=== PATIENT | female | born 1995 | race Caucasian/White ===

== ENCOUNTER 2020-06-07 14:00 | Outpatient (RCR) | payer OTHER, SELFPAY | END 2020-06-15 09:47 | disposition other institution (70) | LOC: HO.PT 14:00 | DX: M54.2 Cervicalgia (principal); R51.9 Headache, unspecified; M54.9 Dorsalgia, unspecified; M25.511 Pain in right shoulder; M25.512 Pain in left shoulder | CPT/HCPCS: 97110; 97161 ==

== ENCOUNTER 2020-06-14 10:20 | Emergency (ER) | payer OTHER, SELFPAY ==
[2020-06-14 10:51] VITALS: BP 118/72; PULSE 84; RESP 18; TEMP 36.8; O2SAT 99; BMI 19.0
[2020-06-14] MEDS: 0.9 % Sodium Chloride 1,000 ML 999 ML IV (11:19)
[2020-06-14 11:26] LABS: Glucose Urine UA NEG (NEG); Leukocyte Esterase Urine NEG (NEG); Nitrite Urine NEG (NEG); Urine Blood NEG (NEG); Urine Ketones NEG (NEG); Urine Protein NEG (NEG-TRACE)
[2020-06-14 11:27] LABS: Appearance Urine HAZY; Color Urine YELLOW
[2020-06-14 11:28] LABS: Basophils Percent Auto 0.3 % (0-2); Eosinophils Absolute Auto 0.2 X10*3/uL (0.0-0.4); Eosinophils Percent Auto 1.8 % (0-4); Hematocrit 43.1 % (37-47); Imm Gran Abs Auto 0.06 X10*3/uL (0.00-0.03); Imm Gran Pct Auto 0.4 % (0.0-0.4); Lymphocytes Absolute Auto 3.1 X10*3/uL (1.2-4.9); Lymphocytes Percent Auto 22.7 % (20-40); MANUAL DIFF FLAG NO; Mean Corpuscular HGB Conc 32.5 g/dl (31.0-35.0); Mean Corpuscular Hemoglobin 28.6 pg (27.0-33.0); Mean Corpuscular Volume 88.1 fL (80-98); Mean Platelet Volume 9.8 fL (9.4-12.3); Monocytes Absolute Auto 0.7 X10*3/uL (0.1-1.2); Monocytes Percent Auto 5.4 % (2-11); Neutrophils Absolute Auto 9.5 X10*3/uL (2.0-8.3); Neutrophils Percent Auto 69.4 % (45-73); Platelet Count 288 X10*3/uL (160-400); Red Blood Count 4.89 X10*6/uL (4.20-5.50); Red Cell Distribution Width 14.5 % (11.0-16.0); White Blood Count 13.7 X10*3/uL (4.8-10.8)
[2020-06-14 11:31] LABS: Prothrombin Time 11.4 SEC (10.8-13.0)
[2020-06-14 11:33] LABS: Partial Thromboplastin Time 34.7 SEC (24.1-38.0)
[2020-06-14 11:58] LABS: Alanine Aminotransferase 12 U/L (0-31); Albumin Level 4.4 g/dL (3.5-5.0); Alkaline Phosphatase 76 U/L (39-117); Anion Gap 12 (12-20); Aspartate Amino Transferase 14 U/L (5-31); Bilirubin Direct < 0.2 mg/dL (0.0-0.5); Bilirubin Total 0.2 mg/dL (0.0-1.0); Blood Urea Nitrogen 13 mg/dL (9-16); Calcium 9.1 mg/dL (8.4-10.2); Carbon Dioxide 26 mmol/L (22-29); Chloride 103 mmol/L (96-108); Creatinine Clr Calc Pharmacy 86.1; Estimated Glomerular Filt Rate > 60; Glucose Random 83 mg/dL (60-115); Potassium 3.6 mmol/l (3.3-5.1); Sodium 137 mmol/L (135-145); Total Protein 7.5 g/dL (6.5-8.0)
[2020-06-14 12:05] LABS: HCG Quantitative 11828 mIU/mL
--- NOTE | 2020-06-14 12:19 | US_ITS ---
EXAMINATION: US OBSTETRICAL ULTRASOUND CLINICAL INFORMATION: Early , vaginal bleeding COMPARISON: None. LMP: 05/03/2020. Gestational age by maternal dates is 6 weeks 0 days. Estimated date of delivery by maternal dates is 02/07/2021. TECHNIQUE: Ultrasound of the maternal pelvis is performed using transabdominal and transvaginal transducers. Transvaginal imaging is performed due to inadequate visualization transabdominally. M-mode Doppler is also performed. FINDINGS: There is a single intrauterine gestational sac in the upper uterine cavity with visible embryo. Yolk sac not visible. No visible subchorionic hemorrhage or hematoma. HR: 93 beats per minute. CRL (crown rump length): 0.44 cm (6 weeks 1 day +/- 4 days). SHANTA (estimated date of delivery): 02/06/2021 +/- 4 days. MATERNAL ADNEXA: The right maternal ovary measures 3.0 x 2.1 x 2.7 cm. There is small right intraovarian corpus luteum measuring 1.6 cm diameter. The left maternal ovary measures 2.9 x 1.9 x 2.4 cm. There is no significant maternal adnexal mass. No maternal pelvic ascites. US/US OB <= 14 weeks fetus IMPRESSION: 1. Single intrauterine gestation with ultrasound gestational age of 6 weeks 1 day +/- 4 days. 2. Estimated date of delivery is 02/06/2021 +/- 4 days. 3. Yolk sac not visualized. 4. cardiac activity 93 bpm. This may be reassessed again at follow-up ultrasound. 5. No subchorionic hemorrhage or hematoma. 6. Incidental small right corpus luteum cyst under 2 cm. No maternal pelvic ascites.
--- NOTE | 2020-06-14 12:26 | PC.NURSE ---
pt reports that her cramping is starting to increase, aware
--- NOTE | 2020-06-14 12:32 | ED_ITS ---
HPI - General Adult General Chief complaint: Vaginal Bleeding Stated complaint: vaginal bleeding, cramping - Time Seen by Provider: 06/14/20 10:58 Source: patient Mode of arrival: ambulatory Limitations: no limitations History of Present Illness HPI narrative: Patient presents to ED for vaginal bleeding since this morning. Patient states lower abdominal cramping for the past 3 days. Patient did a home in May 26 which was positive but never followed up with OBGYN officially. Related Data Allergies Allergy/AdvReac Type Severity Reaction Status Date / Time morphine [MORPHINE] AdvReac Unknown SHAKING,TAC Unverified 02/23/20 16:35 HYCARDIA Review of Systems Review of Systems: Yes all other systems are reviewed and are negative Constitutional: Constitutional: Reports as per HPI and Reports no additional constitutional complaints Eyes: Eyes: Reports as per HPI and Reports no additional eye complaints ENT: Reports system reviewed and no additional complaints, except as documented and Reports as per HPI Cardiovascular: Cardiovascular: Reports as per HPI and Reports no additional cardiovascular complaints Respiratory: Respiratory: Reports as per HPI and Reports no additional respiratory complaints Gastrointestinal: Gastrointestinal: Reports as per HPI, Reports no additional gastrointestinal complaints and Reports abdominal pain Genitourinary: Genitourinary: Reports no additional female genitourinary complaints, Reports as per HPI and Reports abnormal vaginal bleeding Musculoskeletal: Musculoskeletal: Reports no additional musculoskeletal complaints and Reports as per HPI Neurologic: Reports system reviewed and no additional complaints, except as documented and Reports as per HPI Psychiatric: Psychiatric: Reports no additional psychiatric complaints and Reports as per HPI PMFSH Past Medical History Medical History (Updated 06/14/20 @ 14:47 by NICCI Enriquez) delivery delivered Social History Social History Smoking Status: Current every day smoker Use of substances other than those prescribed or required for medical reasons: Yes Substance Use Type: Marijuana Substance Use Frequency: Occasionally Advance Directives: No Advance Directives Information Provided: Yes Physical Exam Vital Signs: Vital Signs: Last Vital Signs Temp 98.3 F 06/14/20 10:51 Pulse 89 06/14/20 12:36 Resp 18 06/14/20 12:36 BP 107/57 L 06/14/20 12:36 Pulse Ox 99 06/14/20 12:36 Body Mass Index 19.0 Const: General: cooperative, healthy appearing, comfortable, no acute distress, well developed, alert and awake Orientation/consciousness: patient oriented x3 HENMT: Head: Yes normal to inspection and Yes No palpable skull fracture present Eyes: General: appearance normal, both eyes and all related structures Neck: Neck: Yes normal visual inspection, Yes full ROM, Yes no lymphadenopathy, Yes no meningeal signs, Yes trachea midline, Yes supple and No tender Chest: Chest palpation & inspection: normal inspection of the chest and normal palpation of entire chest wall Resp: Effort & Inspection: normal respiratory effort and able to speak in complete sentences Auscultation: clear to auscultation bilaterally Cardio: Jugular venous distension: no JVD Heart sounds: S1 normal heart sound present and S2 normal heart sound present GI: Inspection: Yes normal to inspection Palpation (GI): Soft to palpation, not firm, Tenderness to palpation present (GI) (Lower pelvic pain), no guarding and not rigid : Other: Waiting for female certified procedural coder to perform pelvic exam General: No CVA tenderness and Yes no CVA tenderness Back/Spine/Pelvis: Back: no CVA tenderness, No CVA tenderness and No back tenderness Skin: General skin exam: no rashes or lesions noted Neuro: General: patient oriented x3, gait normal and no meningeal signs Cranial nerves: Yes CN's II-XII intact bilaterally Extrem: General: Yes normal to inspection and Yes full ROM Psych: Appearance: grossly normal, well kempt and not disheveled Course Course Course Narrative: Patient will have blood work to confirm and be given IV fluids and Tylenol for pain. IF patient is positive shie will be sent for ultrasound to rule out ectopic . We will do pelvic exam Reevaluation(s) Reevaluation #1: Patient patient labs came back normal at baseline. Patient blood type O positive, Rh positive. Patient went to ultrasound and plan was to wait for female certified procedural coder to perform pelvic exam. Nurse informed me after ultrasound was done patient asked for her IV to be pulled out and she walked out the ER. Transvaginal ultrasound does not show ectopic . It shows IUP of about 6 weeks. Time: 14:43 Medical Decision Making MDM Narrative Medical decision making narrative: Threatened Lab Data Result diagrams: 06/14/20 11:15 06/14/20 11:15 Labs: Lab Results 06/14/20 06/14/20 06/14/20 Range/Units 11:10 11:15 11:15 WBC 13.7 H (4.8-10.8) X10*3/uL RBC 4.89 (4.20-5.50) X10*6/uL Hgb 14.0 (12.0-16.0) g/dl Hct 43.1 (37-47) % MCV 88.1 (80-98) fL MCH 28.6 (27.0-33.0) pg MCHC 32.5 (31.0-35.0) g/dl RDW 14.5 (11.0-16.0) % Plt Count 288 (160-400) X10*3/uL MPV 9.8 (9.4-12.3) fL Immature Gran % (Auto) 0.4 (0.0-0.4) % Neut % (Auto) 69.4 (45-73) % Lymph % (Auto) 22.7 (20-40) % [place] % (Auto) 5.4 (2-11) % Eos % (Auto) 1.8 (0-4) % Baso % (Auto) 0.3 (0-2) % Lymph # (Auto) 3.1 (1.2-4.9) X10*3/uL [place] # (Auto) 0.7 (0.1-1.2) X10*3/uL Eos # (Auto) 0.2 (0.0-0.4) X10*3/uL Baso # (Auto) 0.0 (0.0-0.2) X10*3/uL Abs Immat Gran (auto) 0.06 H (0.00-0.03) X10*3/uL Absolute Neuts (auto) 9.5 H (2.0-8.3) X10*3/uL Absolute Nucleated RBC 0.000 (0.0-0.012) X10*3/uL Nucleated RBC % (auto) 0.0 (0.0-0.2) /100WBC PT 11.4 (10.8-13.0) SEC INR 1.0 (0.9-1.1) APTT 34.7 (24.1-38.0) SEC Sodium (135-145) mmol/L Potassium (3.3-5.1) mmol/l Chloride (96-108) mmol/L Carbon Dioxide (22-29) mmol/L Anion Gap (12-20) BUN (9-16) mg/dL Creatinine (0.5-1.4) mg/dL Estim Creat Clear Calc Estimated GFR Random Glucose (60-115) mg/dL Calcium (8.4-10.2) mg/dL Total Bilirubin (0.0-1.0) mg/dL Direct Bilirubin (0.0-0.5) mg/dL AST (5-31) U/L ALT (0-31) U/L Alkaline Phosphatase (39-117) U/L Total Protein (6.5-8.0) g/dL Albumin (3.5-5.0) g/dL Beta HCG, Quant mIU/mL Urine Color Urine Appearance Urine pH (5.0-8.0) Ur Specific [place] (1.005-1.025) Urine Protein (NEG-TRACE) MG/DL Urine Glucose (UA) (NEG) MG/DL Urine Ketones (NEG) MG/DL Urine Blood (NEG) Urine Nitrite (NEG) Ur Leukocyte Esterase (NEG) Blood Type O Positive 06/14/20 06/14/20 Range/Units 11:15 11:15 WBC (4.8-10.8) X10*3/uL RBC (4.20-5.50) X10*6/uL Hgb (12.0-16.0) g/dl Hct (37-47) % MCV (80-98) fL MCH (27.0-33.0) pg MCHC (31.0-35.0) g/dl RDW (11.0-16.0) % Plt Count (160-400) X10*3/uL MPV (9.4-12.3) fL Immature Gran % (Auto) (0.0-0.4) % Neut % (Auto) (45-73) % Lymph % (Auto) (20-40) % [place] % (Auto) (2-11) % Eos % (Auto) (0-4) % Baso % (Auto) (0-2) % Lymph # (Auto) (1.2-4.9) X10*3/uL [place] # (Auto) (0.1-1.2) X10*3/uL Eos # (Auto) (0.0-0.4) X10*3/uL Baso # (Auto) (0.0-0.2) X10*3/uL Abs Immat Gran (auto) (0.00-0.03) X10*3/uL Absolute Neuts (auto) (2.0-8.3) X10*3/uL Absolute Nucleated RBC (0.0-0.012) X10*3/uL Nucleated RBC % (auto) (0.0-0.2) /100WBC PT (10.8-13.0) SEC INR (0.9-1.1) APTT (24.1-38.0) SEC Sodium 137 (135-145) mmol/L Potassium 3.6 (3.3-5.1) mmol/l Chloride 103 (96-108) mmol/L Carbon Dioxide 26 (22-29) mmol/L Anion Gap 12 (12-20) BUN 13 (9-16) mg/dL Creatinine 0.66 (0.5-1.4) mg/dL Estim Creat Clear Calc 86.1 Estimated GFR > 60 Random Glucose 83 (60-115) mg/dL Calcium 9.1 (8.4-10.2) mg/dL Total Bilirubin 0.2 (0.0-1.0) mg/dL Direct Bilirubin < 0.2 (0.0-0.5) mg/dL AST 14 (5-31) U/L ALT 12 (0-31) U/L Alkaline Phosphatase 76 (39-117) U/L Total Protein 7.5 (6.5-8.0) g/dL Albumin 4.4 (3.5-5.0) g/dL Beta HCG, Quant 41591 mIU/mL Urine Color YELLOW Urine Appearance HAZY Urine pH 7.0 (5.0-8.0) Ur Specific [place] 1.020 (1.005-1.025) Urine Protein NEG (NEG-TRACE) MG/DL Urine Glucose (UA) NEG (NEG) MG/DL Urine Ketones NEG (NEG) MG/DL Urine Blood NEG (NEG) Urine Nitrite NEG (NEG) Ur Leukocyte Esterase NEG (NEG) Blood Type Discharge Plan Discharge Clinical Impression: Threatened Patient Disposition: [facility] Discharge Date/Time: 06/14/20 14:15
[2020-06-14] MEDS: Acetaminophen 325 MG TABLET 650 MG PO (12:34)
[2020-06-14 12:36] VITALS: BP 107/57; PULSE 89; RESP 18; O2SAT 99
--- NOTE | 2020-06-14 12:52 | PC.NURSE ---
pt of to us
--- NOTE | 2020-06-14 13:38 | PC.NURSE ---
Addendum entered by Bettye Tenorio 06/14/20 14:33: pt requested to take her iv out because it was hurting her Original Note: PT REPORTS FEELING BETTER AFTER THE TYLENOL PAIN AT 09/15
--- NOTE | 2020-06-14 14:15 | PC.NURSE ---
pt waked out of the ed, reports she does not want to keep waiting
== END 2020-06-14 14:15 | disposition left against medical advice (07) ==
PROVIDERS: Physician Assistant; Emergency Provider Emergency Medicine
DX: O20.0 Threatened abortion (principal); O99.331 Smoking (tobacco) complicating pregnancy, first trimester; Z3A.01 Less than 8 weeks gestation of pregnancy
CPT/HCPCS: 36415; 76801; 76817; 80053; 80076; 81003; 82248; 84702; 85025; 85610; 85730; 86900; 86901; 96360; 99284

== ENCOUNTER 2020-09-24 15:21 | Emergency (ER) | payer OTHER, SELFPAY ==
[2020-09-24 15:36] VITALS: BP 129/74; PULSE 93; RESP 18; TEMP 36.6; O2SAT 98; BMI 21.6
== END 2020-09-24 18:17 | disposition left against medical advice (07) ==
PROVIDERS: Emergency Provider Emergency Medicine
DX: N93.9 Abnormal uterine and vaginal bleeding, unspecified (principal); Z48.00 Encounter for change or removal of nonsurgical wound dressing
CPT/HCPCS: 99282

== ENCOUNTER 2020-09-25 | Emergency (ER) | payer OTHER, SELFPAY ==
--- NOTE | 2020-09-25 00:54 | ED.FEMALEGU ---
HPI - Female Genitourinary General Chief complaint: OB Stated complaint: ?Miscarriage /Vaginal Bleeding/ 4-5weeks Time Seen by Provider: 09/25/20 00:41 Source: patient Mode of arrival: ambulatory Limitations: no limitations History of Present Illness HPI Narrative: Patient 4 with 4 miscarriages and 1 twin delivery LMP was 08/21/20 Checked test at home 3 times positive and today she noticed spotting and later on dark color blood with lower abdominal cramps. Also patient has a small red area on the scar which is tender and erythematous Related Data Previous Rx's Medication Instructions Recorded clindamycin HCl 300 mg PO QID #40 cap 09/25/20 Allergies Allergy/AdvReac Type Severity Reaction Status Date / Time morphine [MORPHINE] AdvReac Unknown SHAKING,TAC Unverified 02/23/20 16:35 HYCARDIA Review of Systems Review of Systems: Constitutional : No Weight loss, No Fever, No Chills ENT/Mouth : No sore throat, No Rhinorrhea Eyes: No Eye Pain, No Swelling Cardiovascular : No Chest Pain, no palpitations Respiratory : No Cough, No Sputum, no shortness of breath Gastrointestinal : no Nausea, No Vomiting, No Diarrhea, No abdominal Pain, no black stools Genitourinary : No Dysuria, No Urinary Frequency Musculoskeletal : No joint pain, No Myalgias, No Joint Swelling Skin : Small red tender area at location Neuro : No Weakness, No Numbness, No Dizziness, No Headache Psych : No Anxiety/Panic, No Depression Heme/Lymph: No Bruising, No Lymphadenopathy Endocrine : No Polyuria, No Polydipsia All other systems reviewed and are negative [facility] Past Medical History Medical History delivery delivered Social History Social History Smoking Status: Current every day smoker Substance Use Type: Marijuana Advance Directives: No Physical Exam Vital Signs: Vital Signs: Last Vital Signs Temp 97.8 F 09/25/20 00:59 Pulse 89 09/25/20 00:59 Resp 16 09/25/20 00:59 BP 139/85 09/25/20 00:59 Pulse Ox 99 09/25/20 00:59 Body Mass Index 20.2 Appearance: Alert. Oriented X3. No acute distress. Eyes: Pupils equal, round and reactive to light. ENT: Pharynx normal. Neck: Normal inspection. Neck supple. CVS: Normal heart rate and rhythm. Pulses normal. Respiratory: No respiratory distress. Breath sounds normal. Abdomen: Soft and nontender. Bowel sounds are present, no mass palpable, no CVA tenderness Skin: Skin warm and dry. Small tender swelling at scar Normal skin turgor. Extremities: No lower extremity edema. Neuro: Oriented X 3. No motor deficit. No sensory deficit. Skin: Full body images: 1. Erythematous swollen fluctuant 2 x 2 cm area at area Procedures Abscess I/D Site: abdomen Side (if applicable): left Local Anesthetic: lidocaine 2% Amount of anesthesia used (mL): 4 Technique: incised with blade Amount of fluid expressed (mL): 3 Sent for culture/gram staining?: Yes Irrigation: No Packing used?: none MDM - Female Genitourinary MDM Narrative Medical decision making narrative: Patient likely with miscarriage had blood clots and dark blood today HCG only 44. Will advise patient to follow-up with lead slot technician. Patient had the abscess at which was drained , likely the cause for elevated WBC count will discharge home on clindamycin Lab Data Attestation: I reviewed the patient's lab results. Result diagrams: 09/25/20 01:19 09/25/20 01:19 Labs: Lab Results 09/25/20 09/25/20 09/25/20 Range/Units 01:19 01:19 01:19 WBC 19.1 H (4.8-10.8) X10*3/uL RBC 4.97 (4.20-5.50) X10*6/uL Hgb 14.4 (12.0-16.0) g/dl Hct 43.5 (37-47) % MCV 87.5 (80-98) fL MCH 29.0 (27.0-33.0) pg MCHC 33.1 (31.0-35.0) g/dl RDW 14.1 (11.0-16.0) % Plt Count 288 (160-400) X10*3/uL MPV 10.1 (9.4-12.3) fL Immature Gran % (Auto) 0.4 (0.0-0.4) % Neut % (Auto) 72.0 (45-73) % Lymph % (Auto) 20.5 (20-40) % [place] % (Auto) 6.1 (2-11) % Eos % (Auto) 0.7 (0-4) % Baso % (Auto) 0.3 (0-2) % Lymph # (Auto) 3.9 (1.2-4.9) X10*3/uL [place] # (Auto) 1.2 (0.1-1.2) X10*3/uL Eos # (Auto) 0.1 (0.0-0.4) X10*3/uL Baso # (Auto) 0.1 (0.0-0.2) X10*3/uL Abs Immat Gran (auto) 0.07 H (0.00-0.03) X10*3/uL Absolute Neuts (auto) 13.7 H (2.0-8.3) X10*3/uL Absolute Nucleated RBC 0.000 (0.0-0.012) X10*3/uL Nucleated RBC % (auto) 0.0 (0.0-0.2) /100WBC PT 12.0 (10.8-13.0) SEC INR 1.0 (0.9-1.1) APTT 36.4 (24.1-38.0) SEC Sodium (135-145) mmol/L Potassium (3.3-5.1) mmol/L Chloride (96-108) mmol/L Carbon Dioxide (22-29) mmol/L Anion Gap (12-20) BUN (9-16) mg/dL Creatinine (0.5-1.4) mg/dL Estim Creat Clear Calc Estimated GFR Random Glucose (60-115) mg/dL Calcium (8.4-10.2) mg/dL Total Bilirubin (0.0-1.0) mg/dL Direct Bilirubin (0.0-0.5) mg/dL AST (5-31) U/L ALT (0-31) U/L Alkaline Phosphatase (39-117) U/L Total Protein (6.5-8.0) g/dL Albumin (3.5-5.0) g/dL Beta HCG, Quant mIU/mL Urine Color Urine Appearance Urine pH (5.0-8.0) Ur Specific [place] (1.005-1.025) Urine Protein (NEG-TRACE) MG/DL Urine Glucose (UA) (NEG) MG/DL Urine Ketones (NEG) MG/DL Urine Blood (NEG) Urine Nitrite (NEG) Ur Leukocyte Esterase (NEG) Urine RBC (0) /HPF Urine WBC (0-4) /HPF Ur Squamous Epith Cells /LPF Urine Bacteria /LPF Urine Mucus /LPF Blood Type O Positive 09/25/20 09/25/20 Range/Units 01:19 01:34 WBC (4.8-10.8) X10*3/uL RBC (4.20-5.50) X10*6/uL Hgb (12.0-16.0) g/dl Hct (37-47) % MCV (80-98) fL MCH (27.0-33.0) pg MCHC (31.0-35.0) g/dl RDW (11.0-16.0) % Plt Count (160-400) X10*3/uL MPV (9.4-12.3) fL Immature Gran % (Auto) (0.0-0.4) % Neut % (Auto) (45-73) % Lymph % (Auto) (20-40) % [place] % (Auto) (2-11) % Eos % (Auto) (0-4) % Baso % (Auto) (0-2) % Lymph # (Auto) (1.2-4.9) X10*3/uL [place] # (Auto) (0.1-1.2) X10*3/uL Eos # (Auto) (0.0-0.4) X10*3/uL Baso # (Auto) (0.0-0.2) X10*3/uL Abs Immat Gran (auto) (0.00-0.03) X10*3/uL Absolute Neuts (auto) (2.0-8.3) X10*3/uL Absolute Nucleated RBC (0.0-0.012) X10*3/uL Nucleated RBC % (auto) (0.0-0.2) /100WBC PT (10.8-13.0) SEC INR (0.9-1.1) APTT (24.1-38.0) SEC Sodium 139 (135-145) mmol/L Potassium 3.8 (3.3-5.1) mmol/L Chloride 104 (96-108) mmol/L Carbon Dioxide 22 (22-29) mmol/L Anion Gap 17 (12-20) BUN 14 (9-16) mg/dL Creatinine 0.64 (0.5-1.4) mg/dL Estim Creat Clear Calc 90.0 Estimated GFR > 60 Random Glucose 86 (60-115) mg/dL Calcium 8.9 (8.4-10.2) mg/dL Total Bilirubin 0.7 (0.0-1.0) mg/dL Direct Bilirubin 0.2 (0.0-0.5) mg/dL AST 18 (5-31) U/L ALT 10 (0-31) U/L Alkaline Phosphatase 87 (39-117) U/L Total Protein 7.9 (6.5-8.0) g/dL Albumin 4.3 (3.5-5.0) g/dL Beta HCG, Quant 44 mIU/mL Urine Color DARK YELLOW Urine Appearance CLEAR Urine pH 6.5 (5.0-8.0) Ur Specific [place] >= 1.030 H (1.005-1.025) Urine Protein TRACE (NEG-TRACE) MG/DL Urine Glucose (UA) NEG (NEG) MG/DL Urine Ketones 5 (NEG) MG/DL Urine Blood 3+ H (NEG) Urine Nitrite NEG (NEG) Ur Leukocyte Esterase NEG (NEG) Urine RBC 5-9 H (0) /HPF Urine WBC 0 (0-4) /HPF Ur Squamous Epith Cells TRACE /LPF Urine Bacteria NONE /LPF Urine Mucus 3+ /LPF Blood Type Discharge Plan Discharge Clinical Impression: Threatened miscarriage, Abscess Patient Disposition: Home, Self-Care Instructions: Threatened Miscarriage (ED), Abscess Incision and Drainage (DC) Additional Instructions: Take antibiotic as advised for abscess. Follow up with PCP Follow-up with lead slot technician in 2 days for repeat blood to check about the Prescriptions: New clindamycin HCl 300 mg capsule 300 mg PO QID Qty: 40 RF: 0 Referrals: Blaise Meredith MD [Physician] - 2 days Interventions: ED Discharge Assessment Last Done: 09/25/20 02:34 Discharge Date/Time: 09/25/20 02:35
[2020-09-25 00:59] VITALS: BP 139/85; PULSE 89; RESP 16; TEMP 36.6; O2SAT 99; BMI 20.2
[2020-09-25 01:29] LABS: MANUAL DIFF FLAG NO
[2020-09-25 01:33] LABS: Basophils Absolute Auto 0.1 X10*3/uL (0.0-0.2); Basophils Percent Auto 0.3 % (0-2); Eosinophils Absolute Auto 0.1 X10*3/uL (0.0-0.4); Eosinophils Percent Auto 0.7 % (0-4); Hematocrit 43.5 % (37-47); Hemoglobin 14.4 g/dl (12.0-16.0); Imm Gran Abs Auto 0.07 X10*3/uL (0.00-0.03); Imm Gran Pct Auto 0.4 % (0.0-0.4); Lymphocytes Absolute Auto 3.9 X10*3/uL (1.2-4.9); Lymphocytes Percent Auto 20.5 % (20-40); Mean Corpuscular HGB Conc 33.1 g/dl (31.0-35.0); Mean Corpuscular Volume 87.5 fL (80-98); Mean Platelet Volume 10.1 fL (9.4-12.3); Monocytes Absolute Auto 1.2 X10*3/uL (0.1-1.2); Monocytes Percent Auto 6.1 % (2-11); Neutrophils Absolute Auto 13.7 X10*3/uL (2.0-8.3); Platelet Count 288 X10*3/uL (160-400); Red Blood Count 4.97 X10*6/uL (4.20-5.50); Red Cell Distribution Width 14.1 % (11.0-16.0); White Blood Count 19.1 X10*3/uL (4.8-10.8)
[2020-09-25 01:43] LABS: Partial Thromboplastin Time 36.4 SEC (24.1-38.0)
[2020-09-25 01:55] LABS: Alanine Aminotransferase 10 U/L (0-31); Albumin Level 4.3 g/dL (3.5-5.0); Alkaline Phosphatase 87 U/L (39-117); Aspartate Amino Transferase 18 U/L (5-31); Bilirubin Direct 0.2 mg/dL (0.0-0.5); Bilirubin Total 0.7 mg/dL (0.0-1.0); Total Protein 7.9 g/dL (6.5-8.0)
[2020-09-25 01:58] LABS: HCG Quantitative 44 mIU/mL
[2020-09-25] MEDS: Lidocaine HCl 2 % MPF 5 ML VIAL INFILTRATI (01:59)
[2020-09-25 02:05] LABS: Glucose Urine UA NEG (NEG); Leukocyte Esterase Urine NEG (NEG); Nitrite Urine NEG (NEG); PH 6.5 (5.0-8.0); Specific Gravity - Urine >= 1.030 (1.005-1.025); Urine Blood 3+ (NEG); Urine Ketones 5 MG/DL (NEG); Urine Protein TRACE MG/DL (NEG-TRACE)
[2020-09-25 02:12] LABS: Appearance Urine CLEAR; Color Urine DARK YELLOW
[2020-09-25 02:37] LABS: Anion Gap 17 (12-20); Blood Urea Nitrogen 14 mg/dL (9-16); Calcium 8.9 mg/dL (8.4-10.2); Carbon Dioxide 22 mmol/L (22-29); Chloride 104 mmol/L (96-108); Estimated Glomerular Filt Rate > 60; Glucose Random 86 mg/dL (60-115); Potassium 3.8 mmol/L (3.3-5.1); Sodium 139 mmol/L (135-145)
[2020-09-25 02:38] LABS: Mucus Urine 3+ /LPF; Squamous Epithelial Cell Urine TRACE /LPF; WBC Urine 0 /HPF (0-4)
== END 2020-09-25 02:35 | disposition home or self-care (01) ==
PROVIDERS: Emergency Medicine; Emergency Provider Internal Medicine
DX: O20.0 Threatened abortion (principal); O99.331 Smoking (tobacco) complicating pregnancy, first trimester; O99.321 Drug use complicating pregnancy, first trimester; F12.90 Cannabis use, unspecified, uncomplicated; O26.891 Other specified pregnancy related conditions, first trimester; L02.211 Cutaneous abscess of abdominal wall; Z3A.01 Less than 8 weeks gestation of pregnancy
CPT/HCPCS: 10060; 36415; 80048; 80076; 81001; 81003; 84702; 85025; 85610; 85730; 86900; 86901; 87071; 87205; 99283; 99284

== ENCOUNTER 2020-10-18 13:47 | Outpatient (REF) | payer OTHER, SELFPAY ==
[2020-10-18 14:08] LABS: COVID-19 Test Negative (Negative)
== END 2020-10-18 13:48 | disposition home or self-care (01) ==
LOC: HO.LAB 13:47
PROVIDERS: Visit Provider Internal Medicine
DX: Z20.822 Contact with and (suspected) exposure to COVID-19 (principal)
CPT/HCPCS: 36415; 87635; C9803

== ENCOUNTER 2022-07-12 21:18 | Emergency (ER) | payer OTHER, SELFPAY ==
[2022-07-12 21:23] VITALS: PULSE 100; RESP 16; TEMP 36.6; O2SAT 98; BMI 24.2
--- NOTE | 2022-07-12 22:25 | ED_ITS ---
HPI - Skin/Abscess/Foreign Bdy General Chief complaint: Skin/Abscess/Foreign Body Stated complaint: cyst under right breast Time Seen by Provider: 07/12/22 22:25 Source: patient Mode of arrival: ambulatory Limitations: no limitations History of Present Illness HPI narrative: 27-year-old female presents with abscess under her right breast, has been there for about a month but over the past 2 days the redness swelling and pain has increased. She has been trying to express the pus on her own with poor effect. She is not , and has no family history of breast cancer. MD complaint: abscess/boil Onset (ago): month(s) (1) Tetanus up to date: yes Severity: moderate Severity scale (1-10): 5 Quality: aching Pain Consistency: constant Relieving factors: none Exacerbating factors: palpation and movement Context: none Associated symptoms: denies other symptoms Treatments prior to arrival: attempted to drain pus at home Related Data Previous Rx's Medication Instructions Recorded clindamycin HCl 300 mg capsule 300 mg PO QID #40 caps 09/25/20 doxycycline monohydrate 100 mg 100 mg PO BID 10 days #20 caps 07/12/22 capsule Allergies Allergy/AdvReac Type Severity Reaction Status Date / Time morphine [MORPHINE] AdvReac Unknown SHAKING,TAC Unverified 02/23/20 16:35 HYCARDIA Review of Systems Review of Systems: Constitutional: No Fever, No Chills Cardiovascular: No Chest Pain, No SOB Respiratory: No Cough, No Dyspnea Skin: Positive abscess under the right breast Yes all other systems are reviewed and are negative PMFSH Past Medical History Attestation statement: The following information was validated with the patient. Source: old records reviewed Medical History delivery delivered Social History Social History Substance Use Type: Marijuana Advance Directives: No Physical Exam Vital Signs: Vital Signs: Last Vital Signs Temp 98 F 07/12/22 21:23 Pulse 100 07/12/22 21:23 Resp 16 07/12/22 21:23 Pulse Ox 98 07/12/22 21:23 O2 Del Method 07/12/22 21:23 BMI result Body Mass Index 24.2 Appearance: Alert. Oriented X3. No acute distress. Eyes: Pupils equal, round and reactive to light. ENT: Pharynx normal. Neck: Normal inspection. Neck supple. CVS: Normal heart rate and rhythm. Pulses normal. Respiratory: No respiratory distress. Breath sounds normal. Skin: 1 cm in diameter abscess under the right breast, with 2 cm in diameter of cellulitis. No axillary lymphadenopathy noted. Extremities: No lower extremity edema. Full range of motion to all extremities. Neuro: No motor deficit. No sensory deficit. Cranial nerves 2-12 intact. Course Course Course Narrative: 27-year-old female presents with cyst under the right breast, has been present for about a month, over the past 2 days redness swelling and tenderness has i ncreased. 1 cm area of fluctuance and induration with a 2 cm diameter of cellulitis. Patient does not have a history of breast cancer, does not have any axillary lymphadenopathy. Patient does understand that she must follow-up with the breast Clinic for mammogram. At this time will I and D this abscess, obtain culture, and give doxycycline. 23:13 prepped and draped in sterile fashion. Patient tolerated procedure well. Culture obtained approximately 5 mL of purulent fluid expressed from the site. Sterile dressing applied. Patient does understand signs symptoms indicating need for emergent intervention. Agrees to plan of care discharge home. Medications Administered Discontinued Medications Generic Name Dose Route Start Last Admin Trade Name Freq PRN Reason Stop Dose Admin Doxycycline Monohydrate 100 mg 07/12/22 22:33 07/12/22 22:59 Doxycycline Monohydrate 100 Mg Capsule PO 07/12/22 22:34 100 mg ONCE ONE Administration Ibuprofen 600 mg 07/12/22 23:15 07/12/22 23:34 Ibuprofen 600 Mg Tablet PO 07/12/22 23:16 Not Given ONCE ONE Lidocaine HCl 4 ml 07/12/22 22:32 07/12/22 23:09 Lidocaine Hcl 2% 2 Ml Vial SUBCUT 07/12/22 22:33 4 ml ONCE ONE Administration Medical Decision Making Differential Diagnosis Differential Diagnoses: The differential diagnosis associated with the presentation includes Abscess, cellulitis, breast cancer, mastitis External Record Review External record reviewed: Outpatient record Prescription Management I considered prescription management with: Antibiotic Procedures Abscess I/D Site: other (Right breast) Local Anesthetic: lidocaine 1% Amount of anesthesia used (mL): 4 Technique: incised with blade Amount of fluid expressed (mL): 5 Sent for culture/gram staining?: Yes Irrigation: No Packing used?: none Discharge Plan Discharge Clinical Impression: Abscess of skin or subcutaneous tissue, Cellulitis Patient Disposition: Home, Self-Care Instructions: Cellulitis (ED), Abscess (ED), Abscess Follow-up (ED), Warm Compress or Soak (ED) Additional Instructions: You were evaluated for right breast abscess. Your cultures are pending. Take doxycycline 100 mg twice a day for the next 10 days. If you notice any fevers, chills, or increased redness or swelling at the site please return immediately. You must follow-up with the breast Clinic at [facility] for mammogram. Alternate Tylenol 650 mg every 6 hours and Motrin 600 mg every 6 hours as needed for pain and fever management. Consider taking these medications 3 hours apart so you have pain and fever management every 3 hours. Write down what time you take these medications to prevent accidental overdose. Last dose of Motrin given at 23:30. Consider giving Tylenol at 03:00 so you can have pain management every 3 hours. Thank you for choosing this emergency department for evaluation. Please follow-up with primary care physician as needed. Return to the emergency department for any new, concerning, or worsening symptoms. Prescriptions: New doxycycline monohydrate 100 mg capsule 100 mg PO BID 10 Days Qty: 20 0RF No Action clindamycin HCl 300 mg capsule 300 mg PO QID Qty: 40 0RF Referrals: [facility] [place] [facility] [Provider Group] - 3 days (Right breast abscess, you need a mammogram) Stand Alone Forms: Work/School Release Interventions: ED Discharge Assessment Last Done: 07/12/22 23:34 Discharge Date/Time: 07/12/22 23:35
[2022-07-12] MEDS: Doxycycline Monohydrate 100 MG CAPSULE PO (22:59)
--- OUTSIDE RECORDS SUMMARY | 2022-07-12 23:05 | XMS_ITS | Continuity of Care Document ---
:1995 Author Organization [facility] Address [address] [place] [address]- Care Team Providers Name Role Phone Katharina Corona MD Primary Care Physician Encounter [facility] [place] Date(s): 04/15/22 - 05/15/[address] [address] Allergies, Adverse Reactions, Alerts Substance Reaction Severity Status morphine sob Active Medications Colace sodium 100 mg oral capsule 100 mg, 1, capsule, By Mouth, 2 times a day, PRN, # 60 capsule, Refills 2, Tot. Refills 2, Maintenance, for constipation, 05/11/22 14:24:00 EST, Route to Pharmacy Electronically, [facility], Partial fill upon patient request if the prescr... Start Date: 05/11/22 Status: Orderedibuprofen 600 mg oral tablet 600 mg, 1, tablet, By Mouth, 3 times a day, # 90 tablet, Refills 0, Tot. Refills 0, Maintenance, 05/15/22 9:44:00 EST, Route to Pharmacy Electronically, [facility], Partial fill upon patient request if the prescription is for a schedule I... Start Date: 05/15/22 Status: OrderedMiraLax oral powder for reconstitution = 17 Gm, By Mouth, Daily, dissolve in water before taking, # 527 Gm, 0 Refills, Maintenance, 05/11/22 14:24:00 EST, REC Powder, [facility], Partial fill upon patient request if the prescription is for a schedule II opioid drug., 17 Gm By... Start Date: 05/11/22 Status: Orderedondansetron 4 mg oral tablet, disintegrating 1 tablet = 4 mg, By Mouth, Every 6 hours, PRN Nausea & Vomiting, # 12 tablet, 1 Refills, Maintenance, 05/14/22 13:50:00 EST, Tablet, [facility], Partial fill upon patient request if the prescription is for a schedule II opioid drug., 57,... Start Date: 05/14/22 Status: OrderedPrenatal Multivitamin Tablet 1 tablet, By Mouth, Daily, 0 Refills, Maintenance, 12/07/18 18:36:22 EDT, Tablet Start Date: 12/07/18 Status: OrderedPrenatal Multivitamins with Folic Acid 1 mg oral tablet 1 tablet, By Mouth, Daily, # 90 tablet, 3 Refills, Maintenance, 04/15/22 16:45:00 EST, Tablet, [facility], Partial fill upon patient request if the prescription is for a schedule II opioid drug., 1 tablet By Mouth Daily, 57, kg, 04/14/22... Start Date: 04/15/22 Status: OrderedReglan 10 mg oral tablet 1 tablet = 10 mg, By Mouth, 4 times a day, # 120 tablet, 0 Refills, Maintenance, 05/11/22 14:24:00 EST, Tablet, [facility], Partial fill upon patient request if the prescription is fora schedule II opioid drug., 57, kg, 04/14/22 15:10:00... Start Date: 05/11/22 Status: Orderedsenna - oral tablet 2 tablet, By Mouth, Daily at bedtime, PRN for constipation, # 60 tablet, 2 Refills, Maintenance, 05/11/22 14:24:00 EST, Tablet, [facility], Partial fill upon patient request if the prescription is for a schedule II opioid drug., 57, kg, 1... Start Date: 05/11/22 Status: OrderedTylenol 8 Hour 650 mg oral tablet, extended release 2 tablet = 1,300 mg, By Mouth, Every 8 hours, PRN as needed for pain, # 24 tablet, 0 Refills, Maintenance, 05/15/22 9:45:00 EST, ER Tablet, [facility], Partial fill upon patient request if the prescription is for a schedule II opioid drug... Start Date: 05/15/22 Status: OrderedUnisom 25 mg oral tablet 1 tablet = 25 mg, By Mouth, Daily, 15 to 30 minutes before bed, # 30 tablet, 1 Refills, Acute 04/15/23 16:46:00 EST, 04/15/22 16:45:00 EST, Tablet, [facility], Partial fill upon patient request if the prescription is for a schedule II opi... Start Date: 04/15/22 Stop Date: 04/15/23 Status: OrderedVitamin B6 25 mg oral tablet 1 tablet = 25 mg, By Mouth, 3 times a day, # 100 tablet, 1 Refills, Acute 04/15/23 16:46:00 EST, 04/15/22 16:45:00 EST, [facility], Partial fill upon patient request if the prescription is for a schedule II opioid drug., 57, kg, 04/14/22... Start Date: 04/15/22 Stop Date: 04/15/23 Status: Ordered Problem List Condition Confirmation Course Effective Dates Status Health Stat us Informant Asthma Confirmed Active Marijuana use Confirmed Active Migraines Confirmed Active premature Confirmed Active rupture of membranes Tobacco use Confirmed Active Twin dichorionic Confirmed Active diamniotic placenta Social History Social History Type Response Sex Female Patient Care team information Care Team PersonnelName: Katharina Corona MD Position: [facility] Physician (General Medicine) Member Role: PCP Address: Address: [address] [place] [address] [place] [address]- Care Team Related PersonsName: DANYEL BORJA Address: home [address] [place] [address]
--- OUTSIDE RECORDS SUMMARY | 2022-07-12 23:05 | XMS_ITS | Continuity of Care Document ---
:1995 Author Organization [facility] Address [address] [place] [address]- Care Team Providers Name Role Phone Katharina Corona MD Primary Care Physician [place] [facility] [place] 05/15/22 - 06/19/[address] [address]- Attending Physician: Not on Staff, Attending MD Allergies, Adverse Reactions, Alerts Substance Reaction Severity [...] Care Team PersonnelName: Katharina Corona MD Position: [facility] Physician (General Medicine) Member Role: PCP Address: Address: [address] [place] [address]- [place] Care Team Related PersonsName: DANYEL BORJA Address: home [address] [place] [address]
--- OUTSIDE RECORDS SUMMARY | 2022-07-12 23:05 | XMS_ITS | Continuity of Care Document ---
:1995 Author Organization [facility] Address [address] [place] [address]- Care Team Providers Name Role Phone Katharina Corona MD Primary Care Physician Encounter [facility] [place] Date(s): 04/14/22 - 05/14/[address] [address]- Allergies, Adverse Reactions, Alerts Substance Reaction Severity [...] if the prescr... Start Date: 05/11/22 Status: OrderedMiraLax oral powder for reconstitution = [...] 57, kg, 1... Start Date: 05/11/22 Status: OrderedUnisom 25 mg oral tablet 1 [...] Care Team PersonnelName: Katharina Corona MD Position: [facility] Physician (General Medicine) Member Role: PCP Address: Address: [address] [place] [address]- Care Team Related PersonsName: DANYEL BORJA Address: home [address] [facility] [address]
--- OUTSIDE RECORDS SUMMARY | 2022-07-12 23:05 | XMS_ITS | Continuity of Care Document ---
:1995 Author Organization [facility] Address [address] [place] [address]- Care Team Providers Name Role Phone Katharina Corona MD Primary Care Physician Encounter [facility] [place] Date(s): 05/13/22 - 06/27/[address] [address]- Attending Physician: Not on Staff, Attending MD [...] Care Team PersonnelName: Katharina Corona MD Position: [facility] Physician (General Medicine) Member Role: PCP Address: Address: [address] [place] [address]- [place] Care Team Related PersonsName: DANYEL BORJA Address: home [address] [place] [address]
--- OUTSIDE RECORDS SUMMARY | 2022-07-12 23:05 | XMS_ITS | Continuity of Care Document ---
:1995 Author Organization [facility] Address [address] [place] [address]- Care Team Providers Name Role Phone Katharina Corona MD Primary Care Physician Encounter [facility] [place] Date(s): 04/14/22 - 05/14/[address] [address]- Allergies, Adverse Reactions, Alerts Substance Reaction Severity [...] Care Team PersonnelName: Katharina Corona MD Position: [facility] Physician (General Medicine) Member Role: PCP Address: Address: [address] [place] [address]- Care Team Related PersonsName: DANYEL BORJA Address: home [address] [facility] [place] [address]
--- OUTSIDE RECORDS SUMMARY | 2022-07-12 23:05 | XMS_ITS | Continuity of Care Document ---
:1995 Author Organization [facility] Address [address] [place] [address]- Care Team Providers Name Role Phone Katharina Corona MD Primary Care Physician En[place] [facility] [place] Date(s): 04/16/22 - 05/16/[address] [address]- Allergies, Adverse Reactions, Alerts Substance Reaction Severity [...] Care Team PersonnelName: Katharina Corona MD Position: [facility] Physician (General Medicine) Member Role: PCP Address: Address: [address] [place] [address]- Care Team Related PersonsName: DANYEL BORJA Address: [place] [address] [facility] [place] [place] [address]
--- OUTSIDE RECORDS SUMMARY | 2022-07-12 23:05 | XMS_ITS | Continuity of Care Document ---
:1995 Author Organization [facility] Address [address] [place] [address]- Care Team Providers Name Role Phone Katharina Corona MD Primary Care Physician [place] [facility] [place](s): 05/11/22 - 06/10/[address] [address]- Allergies, Adverse Reactions, Alerts Substance Reaction Severity [...] Care Team PersonnelName: Katharina Corona MD Position: [facility] Physician (General Medicine) Member Role: PCP Address: Address: [address] [place] [address] [place] [address]- Care Team Related PersonsName: DANYEL BORJA Address: home [address] [place] [address]
--- OUTSIDE RECORDS SUMMARY | 2022-07-12 23:05 | XMS_ITS | Continuity of Care Document ---
:1995 Author Organization [facility] Address [address] [place] [address]- Care Team Providers Name Role Phone Katharina Corona MD Primary Care Physician Encounter [facility] [place] Date(s): 05/16/22 - 05/16/[address] [address] Discharge Disposition: A-D/C Home Attending Physician: Lesli Salter MD Admitting Physician: Lesli Salter MD Referring Physician: Lesli Salter MD Allergies, Adverse Reactions, Alerts Substance Reaction [...] opioid drug., 57,... Start Date: 05/14/22 Status: OrderedOxyCODONE IR Tablet 5 mg, Tablet, By Mouth, Every 4 hours, in PACU ONLY, if patient can tolerate PO, PRN for Pain , Mild, Routine, 05/16/22 12:32:00 EST Start Date: 05/16/22 Stop Date: 05/16/22 Status: DiscontinuedPrenatal Multivitamin Tablet 1 tablet, By Mouth, Daily, [...] Active Twin dichorionic Confirmed Active diamniotic placenta Vital Signs Most recent to oldest 1 2 3 [Reference Range]: Weight 54.5 kg (05/16/22 11:41 AM) Oxygen Saturation [94-100 %] 97 % 96 % 100 % (05/16/22 1:00 PM) (05/16/22 12:45 PM) (05/16/22 12 :30 PM) Pulse Rate [55-90 bpm] 76 bpm (05/16/22 11:41 AM) Blood Pressure [90-138/55-84 110/74 mm Hg 109/72 mm Hg 95/ 65 mm Hg mm Hg] (05/16/22 1:00 PM) (05/16/22 12:45 PM) (05/16/22 12 :30 PM) Respiratory Rate [16-30 18 br/min 18 br/min 20 br/mi n br/min] (05/16/22 1:05 PM) (05/16/22 1:00 PM) (05/16/22 12: 45 PM) Temperature [96.8-100.4 97.2 DegF 97.1 DegF 98.0 Deg F DegF] (05/16/22 1:00 PM) (05/16/22 12:15 PM) (05/16/22 11 :41 AM) Mode of Delivery (Oxygen) Room air Room air Room a ir (05/16/22 1:00 PM) (05/16/22 12:45 PM) (05/16/22 12 :30 PM) Blood pressure sites Arm, right (05/16/22 11:41 AM) Temperature Route Temporal Temporal Temporal (05/16/22 1:00 PM) (05/16/22 12:15 PM) (05/16/22 11 :41 AM) Dry Weight 54.5 kg (05/16/22 11:41 AM) Weight Obtained Via Standing scale (05/16/22 11:41 AM) Dry Weight Obtained Via Standing scale (05/16/22 11:41 AM) Social History Social History Type Response Sex Female Note Senait Infante RN: PERFORM Event Display: Discharge/Transfer Note Hospital Authored Date: Nursing Discharge Note Entered On: 05/16/2022 13:40 EST Performed On: 05/16/2022 13:40 EST by Senait Infante RN Nursing Discharge Note 2 Discharge Time : 05/16/2022 13:33 EST Discharge Level of Care at Discharge : Home/[facility] Patient Left Unit Via : Wheelchair Patient Accompanied Off Unit with : Significant other DC Instructions Provided & Signed by Pt : Yes Patient Understands D/C Instructions : Yes Patient Instructions Discharge Signed : Yes Did Pt have Specialty Bed or Wound Vac : No Senait Infante RN - 05/16/2022 13:40 Fiona Geronimo RN: PERFORM Event Display: Patient Education/Instruction Authored Date: [id number] Inpatient Adult Discharge Instructions [address] [id number] Name: MEGAN ALAMO : 1995 Visit: 05/16/2022 10:29:00 Current Date: 05/16/2022 12:37 Account: [id number] Inpatient Adult Discharge Instructions We would like to thank you for allowing us to assist you with your healthcare needs. The following includes patient education materials and information regarding your injury/illness. Our entire staff strives to provide an excellent experience for our patients and their families. PLEASE ENSURE YOU FOLLOW-UP PER THE INSTRUCTIONS BELOW! ?? YOUR OPINION IS IMPORTANT TO US! Please complete the survey you may receive by mail or email. Your feedback will be used to make improvements to the healthcare experiences of our patients and their families. Surveys are administered by [employer]. ?? If further treatment with your primary care physician or another doctor is recommended, it is important for you to keep the appointment. Call your primary care physician or return to the Emergency Department immediately if your condition worsens, fails to improve, or new symptoms develop. If you need to find a doctor, you can call [facility] for a referral at [phone] or toll free at [phone]) or log in to [email or web address] ?? You can view and manage your care through the patient portal or by using a health care khushboo of your choosing. [employer] is a website that allows you to securely view your medical information including your hospital discharge summary, office visit summaries, medications and follow-up visits. You can also request appointments, renew medications, and request access to your medical information using a health care khushboo of your choosing, or just ask a question. You can enroll at [email or web address] or register during your next office visit. You have been discharged from [facility], Patient Care Unit: [facility]. If you have any questions regarding these instructions after you leave, please call us and we will be happy to assist you. [facility] Your Care Team Attending Physician Joie STONE, Lesli Willis Discharging Providers Stevo Spencer DO Reason for Admission SPECIAL PROCEDURE CS DS Tests Performed Below is a partial list of the tests performed during your hospitalization. You may have had other tests and procedures not included in this list. Please discuss all test results with your provider. Primary Care Provider Katharina Corona MD Advance Directive Health Care Proxy on File No No qualifying data available. Discharge Vitals Temperature: 97.1 DegF Weight: 54.5 kg Pulse Rate: 76 bpm ?? Respiratory Rate: 19 br/min ?? Systolic Blood Pressure: 95 mm Hg ?? Diastolic Blood Pressure: 65 mm Hg ?? Oxygen Saturation: 100 % ?? Studies Pending All tests and labs ordered during this hospital stay have been completed unless listed below. Pleasediscuss all pending results with your provider listed above in these instructions. ?? No incomplete studies found What to do next Instructions From Your Doctor Discharge Orders Scheduled Follow-Up Appointments Thursday 8:00 AM EST ?? Where: [facility] [address] [place] [address]- Thursday 9:20 AM EST ?? Where: [facility] [address] [place] [address]- You Need to Schedule the Following Appointments Follow Up with??Lesli Salter When?? Follow Up with??Katharina Corona When??In 0 days Where: [address] [place] [address]- Business (1) Discharge Medications ALAMOMEGAN DELGADO :1995 Visit Date:05/16/2022 Medications: Please continue your medications until treatment is completed or stopped by your provider. Medications not listed below should be discontinued. Discuss any questions related to medications with your provider. What How Much When Why Instructions Next Dose Unchanged Acetaminophen (Tylenol 8 Hour 650 mg oral tablet, extended release) 2 tab(s) Oral Every 8 hours as needed for as needed for pain Unchanged Docusate (Colace sodium 100 mg oral capsule) 1 capsule Oral Twice a day as needed for for constipation Unchanged Doxylamine (Unisom 25 mg oral tablet) 1 tab(s) Oral Daily 15 to 30 minutes before bed ?? Unchanged Ibuprofen (ibuprofen 600 mg oral tablet) 1 tab(s) Oral 3 times a day Unchanged Metoclopramide (Reglan 10 mg oral tablet) 1 tab(s) Oral 4 times a day Unchanged Multivitamin, ( Multivitamin Tablet) 1 tab(s) Oral Daily Unchanged Multivitamin, ( Multivitamins with Folic Acid 1 mg oral tablet) 1 tab(s) Oral Daily Unchanged Ondansetron (ondansetron 4 mg oral tablet, disintegrating) 1 tab(s) Oral Every 6 hours as needed for Nausea & Vomiting Unchanged Polyethylene Glycol 3350 (MiraLax oral powder for reconstitution) 17 gram Oral Daily dissolve in water before taking ?? Unchanged Pyridoxine (Vitamin B6 25 mg oral tablet) 1 tab(s) Oral 3 times a day Unchanged Senna (senna - oral tablet) 2 tab(s) Oral Daily at Bedtime as needed for for constipation Test Results Below is a partial list of the most recent Laboratory test results done prior to this discharge. You may have had other tests and procedures not included in this list. Please discuss all test results with your provider. Allergies (NKA means No Known Allergies) morphine??(sob) Problems Active Problems??(7) Asthma?? Marijuana use?? Migraines? premature rupture of membranes?? Tobacco use?? Twin dichorionic diamniotic placenta?? Education Materials Below is the list of Educational Leaflet Providered with your Discharge Instructions. Surgery Medical Daystay Surgical Overnight Discharge Instructions?? Valuables and Belongings I fully understand and agree that [facility] accepts no responsibility for all my personal property including clothing, toilet articles, radios, jewelry, dentures, hearing aids, rings, money, or any other property that is in my possession or is brought to me after admission. I understand certain valuables may be placed in a hospital safe for a short period of time. I understand that the hospital is not liable for loss or damage due to accident, fire, or other natural occurrence while said property is in the safe. I accept full responsibility for any personal property that I keep with me, and will not hold the hospital responsible in case of loss or disappearance. I acknowledge that i have been encouraged to send valuables and belongings home. ?? Review of Valuable and Belonging List: With patient Date for Pt to Sign Valuables/Belongings: 05/16/22 11:41:00 ?? Valuables & Belongings ?? Clothes Electronic devices Jewelry Monetary Items Personal devices Miscellaneous Medications (Valuables) Valuables at Bedside Jacket, Pants, Shirt, Shoes, Undergarments Cell phone Earrings, Rings ? Valuables Sent Home ? Valuables Sent to Security ? Other Discharge Information ? Pulmonary Rehab Status?? Pulmonary Rehab Discharge Status?? Respiratory Rate: 19 br/min ? Common Emergency Awareness Tips IS IT A STROKE? Act FAST and Check for these signs: FACE Does the face look uneven? ARM Does one arm drift down? SPEECH Does their speech sound strange? TIME Call at any sign of stroke ?? Heart Attack Signs Chest discomfort: Most heart attacks involve discomfort in the center of the chest and lasts more than a few minutes, or goes away and comes back. It can feel like uncomfortable pressure, squeezing, fullness or pain. Discomfort in upper body: Symptoms can include pain or discomfort in one or both arms, back, neck, jaw or stomach. Shortness of breath: With or without discomfort. Other signs: Breaking out in a cold sweat, nausea, or lightheaded. Remember, MINUTES DO MATTER. If you experience any of these heart attack warning signs, call to get immediate medical attention! ?? Smoking can increase your chances of developing chronic health problems and can cause harmful effects to other family members in your house. If you smoke, you are strongly encouraged to quit. Please call [facility] Link at [phone] or 4-429-223TrendBent ([phone]) or log in to [email or web address] for referrals to smoking cessation programs. ?? The National Suicide Prevention Hotline is available 29/12 if you or someone you know needs to find areason to keep living. By calling 0-734-392-Bloglovin (2303) you'll be connected to a skilled, trained counselor at a crisis center in your area. INPATIENT DISCHARGE INSTRUCTIONS SIGNATURE PAGE MEGAN ALAMO Location:[facility] Registration Date and Time:05/16/2022 10:29 EST Primary Care Physician: Katharina Corona MD, I MEGAN ALAMO, have received the above patient education materials/instructions and have verbalized understanding. If ambulance or transport services are being used I further acknowledge being given a choice of service. ?? If you need to contact me, please call me at this number: . Patient/Woods Warden Name: Patient/Woods Warden Signature: Relationship to Patient: Witness Name/Signature: Date: Fiona Jaimes RN: PERFORM, SIGN, VERIFY Event Display: Patient Education Handout Authored Date: Fiona Jaimes RN: PERFORM Event Display: Patient Education Leaflets Authored Date: [id number] Surgery Medical Daystay Surgical Overnight Discharge Instructions ?? 295 Medical Daystay/Surgical Overnight Discharge Instructions ? Since your coordination and judgment may be altered by medication and/or anesthesia, a responsible adult must drive you home from the hospital. ? If you have received medication for pain or sedation while under our care, you should not drive, operate machinery, drink alcohol, or sign any legal documents for 24 hours.?? You should have someone with you at home tonight. ? Remain at home the day of discharge.?? You may be up and about unless otherwise instructed by your physician. ? You may resume your daily prescription medication schedule.?? Any depressant medication should be avoided for 24 hours unless otherwise instructed by your surgeon or anesthesiologist. ? Call your physician for a follow-up appointment.? If you experience unusual or severe pain not relied by your pain medication, excessive bleedingor drainage, persistent nausea and vomiting, excessive swelling or redness, foul odor from incision site or fever over 100.6F, you need to call your physician. ? A follow-up phone call by a nurse will be made the day after your procedure.?? If you have stayed with us over night, you will not be receiving a follow-up phone call. ? Nausea and vomiting are a common side effect of prescription pain medication.?? We recommend that pills are not taken on an empty stomach.?? While taking any prescription pain medication you should not drive or drink alcohol. ? Patient Care team information Care Team PersonnelName: Katharina Corona MD Position: [facility] Physician (General Medicine) Member Role: PCP Address: Address: [address] [place] [address] [place] [address]- Care Team Related PersonsName: DANYEL BORJA Address: home [address] [place] [address]
--- OUTSIDE RECORDS SUMMARY | 2022-07-12 23:05 | XMS_ITS | Continuity of Care Document ---
:1995 Author Organization [facility] Address [address] [place] [address]- Care Team Providers Name Role Phone Not on Staff, PCP Primary Care Physician Unavailable Encounter [facility] [place] Date(s): 01/06/20 - 01/07/[address] [address]- [facility] Discharge Disposition: A-D/C Walkout Attending Physician: Not on Staff, Attending MD Admitting Physician: Not on Staff, Admitting MD Referring Physician: Not on Staff, Referring MD Allergies, Adverse Reactions, Alerts Substance Reaction Severity Status morphine sob Active Medications Multivitamin Tablet 1 tablet, By Mouth, Daily, 0 Refills, Maintenance, 12/07/18 18:36:22 EDT, Tablet Start Date: 12/07/18 Status: Ordered Problem List Condition Effective Dates Status Health Status Informant Asthma(Confirmed) Active Marijuana use(Confirmed) Active Migraines(Confirmed) Active premature rupture of Active membranes(Confirmed) Tobacco use(Confirmed) Active Twin dichorionic diamniotic Active placenta(Confirmed) Vital Signs Most recent to oldest [Reference Range]: 1 Oxygen Saturation [94-100 %] 100 % (01/06/20 11:44 PM) Pulse Rate [55-90 bpm] 112 bpm *H* (01/06/20 11:44 PM) Blood Pressure [90-138/55-84 mm Hg] 112/79 mm Hg (01/06/20 11:44 PM) Respiratory Rate [16-30 br/min] 18 br/min (01/06/20 11:44 PM) Temperature [96.8-100.4 DegF] 98.1 DegF (01/06/20 11:44 PM) Blood pressure sites Arm, right (01/06/20 11:44 PM) Temperature Route Oral (01/06/20 11:44 PM) Social History Social History Type Response Sex Female
--- OUTSIDE RECORDS SUMMARY | 2022-07-12 23:05 | XMS_ITS | Continuity of Care Document ---
:1995 Author Organization [facility] Address [address] [place] [address]- Care Team Providers Name Role Phone Katharina Corona MD Primary Care Physician [place] [facility] [place] - 06/12/[address] [address] Allergies, Adverse Reactions, Alerts Substance [...] Care Team PersonnelName: Katharina Corona MD Position: [facility] Physician (General Medicine) Member Role: PCP Address: Address: [address] [place] [address] [place] [address]- Care Team Related PersonsName: DANYEL BORJA Address: home [address] [place] [address]
--- OUTSIDE RECORDS SUMMARY | 2022-07-12 23:05 | XMS_ITS | Continuity of Care Document ---
:1995 Author Organization [facility] Address [address] [place] [address]- Care Team Providers Name Role Phone Katharina Corona MD Primary Care Physician Encounter [facility] [place] Date(s): 04/22/22 - 05/22/[address] [address]- Allergies, Adverse Reactions, Alerts Substance Reaction Severity [...] (General Medicine) Member Role: PCP Address: Address: [address] [place] [address] [place] [address]- Care Team Related PersonsName: DANYEL BORJA Address: home [address] [place] [address]
--- OUTSIDE RECORDS SUMMARY | 2022-07-12 23:05 | XMS_ITS | Continuity of Care Document ---
:1995 Author Organization [facility] Address [address] [place] [address]- Care Team Providers Name Role Phone Not on Staff, PCP Primary Care Physician Unavailable Encounter [facility] [place] Date(s): 04/14/22 - 04/14/[address] [address] Discharge Disposition: A-D/C Home Attending Physician: Vasile Camarena MD Admitting Physician: Vasile Camarena MD Referring Physician: Vasile Camarena MD Allergies, Adverse Reactions, Alerts Substance Reaction Severity Status morphine sob Active Medications Multivitamin Tablet 1 tablet, By Mouth, Daily, 0 Refills, Maintenance, 12/07/18 18:36:22 EDT, Tablet Start Date: 12/07/18 Status: Ordered Problem List Condition Confirmation Course Effective Dates Status Health Stat us Informant Asthma Confirmed Active Marijuana use Confirmed Active Migraines Confirmed Active premature Confirmed Active rupture of membranes Tobacco use Confirmed Active Twin dichorionic Confirmed Active diamniotic placenta Vital Signs Most recent to oldest [Reference Range]: 1 Weight 57 kg (04/14/22 3:10 PM) Oxygen Saturation [94-100 %] 100 % (04/14/22 3:10 PM) Pulse Rate [55-90 bpm] 89 bpm (04/14/22 3:10 PM) Blood Pressure [90-138/55-84 mm Hg] 129/80 mm Hg (04/14/22 3:10 PM) Respiratory Rate [16-30 br/min] 18 br/min (04/14/22 3:10 PM) Temperature [96.8-100.4 DegF] 98.2 DegF (04/14/22 3:10 PM) Mode of Delivery (Oxygen) Room air (04/14/22 3:10 PM) Blood pressure sites Arm, right 1 (04/14/22 3:10 PM) Temperature Route Oral (04/14/22 3:10 PM) Dry Weight 57 kg (04/14/22 3:10 PM) 1Result Comment: right upper arm measured 26cm Social History Social History Type Response Sex Female History and physical note Stevo Spencer DO: PERFORM Event Display: History and Physical Hospital Authored Date: [id number] Patient: ??MEGAN ALAMO ? Age:??26 Years?Sex:??Female?:??1995?? LMP/EGA/SHANTA Gestational Age (EGA) and SHANTA? * Note: EGA calculated as of 04/14/2022 ?? SHANTA:??12/04/2022?EGA*:??6 weeks 4 days ? History?(0,1,1,2)?Method:??Last Menstrual Period??(02/27/2022) History of Present Illness Patient is a 26-year-old??G4, P0122 that presents [facility] with complaints of vaginal bleeding for the past 2 weeks.?? She states that her bleeding started??slowly??and without??identifiable trigger??approximately 2 weeks ago. ??She says that she has been bleeding at the same rate since then which she mayra cribes as spotting of some dark brown blood. ??She denies any acute or heavy vaginal bleeding. ??Shepresented to [facility] for evaluation??given the persistent nature of her bleeding. ??She denies any acute worsening of her bleeding.?Additionally she also denies any abdominal pain, vaginal discharge,??vaginal irritation,??dysuria, hematuria, fever, chills, shortness of breath, chest pain, palpitations, dizziness, lightheadedness. Review of Systems Constitutional:??Denies fever or chills, weakness, fatigue HEENT:??Denies headache, dizziness Cardiovascular: Denies??chest pain or palpitations. Respiratory:??Denies shortness of breath, cough Gastrointestinal: Denies abdominal pain, nausea, vomiting, constipation, diarrhea CORPORATE SECRETARY: Denies vaginal pain. discharge, heavy bleeding, lesions Ext: Denies LE swelling or calf pain Physical Exam Vitals & Measurements T:??98.2?F ?? NH:??89?? RR:??18?? BP:??129/80?? SpO2:??100%?? WT:??57??kg?? General: pleasant, alert, cooperative, NAD HEENT: Normocephalic/atraumatic Cardiac: Regular rate Respiratory: unlabored breathing Abdominal: Soft, non-distended. No guarding or rebound. Neurologic: No focal neurological deficits.??Moves all extremities spontaneously. Extremities: Symmetrical muscle bulk, no visible erythema or edema.?? Psych: Mood and affect stable, appearance appropriate, good eye contact, talkative ?? Yard Truck Driver: Speculum: Normal appearing perineum, vulva, urethral meatus, vaginal and cervical mucosa, no lesions appreciated, no blood in vaginal??vault. No bleeding, clot or tissue noted form??cervical os, os visually closed,??multiparus-appearing cervix. Bimanual: Cervix closed, small, anteverted and mobile uterus. No CMT.??No adnexal fullness. Bilateral adnexal tenderness with abdominal hand. ?? Bedside transabdominal ultrasound showed evidence of 1 gestational sac with possibly second gestational sac as well. ??No evidence of??yolk sac seen in either potential gestational sac. Assessment/Plan Assessment:??Patient is a 26-year-old G4, P0122 that presents [facility] with complaints of vaginal bleeding for the past 2 weeks.??Her vitals are within normal limits while in [facility]. She is Rh+.??Patient's physical exam is reassuring against any immediate concern for spontaneous ??or??ectopic with??benign abdominal exam.??However, given the??transabdominal ultrasound finding??of??potentially 2 gestational sacs??with no evidence of yolk sac,??will obtain formal ultrasound to evaluate for??intrauterine /pregnancies??as well as an hCG??at this time. ?? Reviewed that bleeding in is never normal but not uncommon. Discussed with patient many causes for vaginal bleeding in early that may or may not be related to . We discussed that the differential diagnosis of vaginal bleeding in the first trimester includes implantation, bleeding from cervical friability, infection, failed , and miscarriage. We discussed that atthis time it is difficult to determine the diagnosis. Reviewed return precautions, including but notlimited to, heavy vaginal bleeding soaking through >1 pad per hour or severe pelvic pain not relieved with Tylenol and heating pain. All patient questions answered, patient discharged home. ?? , threatened (O20.0):? - Rh+; no indication for Rhogam - reassuring physical exam - Return precautions discussed - Formal TVUS pending - hCG level pending ? Patient signed out to evening team with plans to re-evaluate pending TVUS result OB History History?(0,1,1,2)? # 1 ?Baby 1 ?Outcome Date:??2016 ?Outcome or Result:??Spontaneous ?Gest Age:??-- ? Outcome:? Sex:??-- ?? # 2 ?Baby 1 ?Outcome Date:??12/10/2018?Outcome or Result:??Vaginal ?Gest Age:??26 weeks ? Outcome:??Live ? Sex:??-- ?Baby 2 ?Outcome Date:??12/10/2018?Outcome or Result:??Vaginal ?Gest Age:??26 weeks ? Outcome:??Live ? Sex:??-- ?Comment:??Vaginal for first baby and C/S for second baby ?? # 3 ?Baby 1 ?Outcome Date:??2019 ?Outcome or Result:??Unknown ?Gest Age:??-- ? Outcome:??-- ? Sex:??-- ?Baby 2 ?Outcome Date:??2019 ?Outcome or Result:??Unknown ?Gest Age:??-- ? Outcome:??-- ? Sex:??-- Labs Labs?? No Results Found. Problem List Active Active Problem List Asthma: (Medical) Marijuana use: (Medical) Migraines: (Medical) : (Obstetric) (02/27/22) premature rupture of membranes: (Medical) Tobacco use: (Medical) Twin dichorionic diamniotic placenta: (Medical) Procedure/Surgical History Cholecystectomy Merlin tooth Home Medications Multivitamin, : 1 tablet, By Mouth, Daily Allergies morphine??(sob) Family History No family history recorded. 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 Will place patient on hCG list, await hCG results and plan for either repeat hCG or TVUS pending on result Julio Christy MD: PERFORM Event Display: History and Physical Hospital Authored Date: Attending Attestation:??I have seen and evaluated this patient??on the date of service. ??I have discussed the case and its management with the resident and agree with the findings and plan as documented in the resident???s note. Patient Care team information Care Team PersonnelName: Not on Staff, PCP Position: [facility] Physician (General Medicine) Member Role: PCP Care Team Related PersonsName: DANYEL BORJA Address: home [address] [facility] [address]
--- NOTE | 2022-07-12 23:10 | PC.NURSE ---
Pt aox4. Abscess of right breast drained by provider. Pt tolerated well.
== END 2022-07-12 23:35 | disposition home or self-care (01) ==
PROVIDERS: Emergency Provider Internal Medicine
DX: N61.1 Abscess of the breast and nipple (principal); F12.90 Cannabis use, unspecified, uncomplicated
CPT/HCPCS: 10060; 87070; 87077; 87186; 87205; 99282; 99284

== ENCOUNTER 2023-02-22 03:21 | Emergency (ER) | payer OTHER, SELFPAY ==
[2023-02-22 03:27] VITALS: BP 132/100; PULSE 102
[2023-02-22 03:32] VITALS: PULSE 100; RESP 18; TEMP 36.7; O2SAT 99; BMI 25.2
[2023-02-22 03:53] LABS: Hematocrit 45.2 % (37.0-47.0); Hemoglobin 15.6 g/dl (12.0-16.0); Mean Corpuscular HGB Conc 34.5 g/dl (31.0-35.0); Mean Corpuscular Hemoglobin 29.1 pg (27.0-33.0); Mean Corpuscular Volume 84.2 fL (80.0-98.0); Mean Platelet Volume 9.1 fL (9.4-12.3); Platelet Count 333 X10*3/uL (160-400); Red Blood Count 5.37 X10*6/uL (4.20-5.50); Red Cell Distribution Width 14.6 % (11.0-16.0); White Blood Count 18.8 X10*3/uL (4.8-10.8)
--- OUTSIDE RECORDS SUMMARY | 2023-02-22 03:55 | XMS_ITS | Continuity of Care Document ---
Author Name Unknown Organization [facility] Address [address] [place] [address]- Care Team Providers Care Switchman Name Role Phone Cj STONE, Katharina Obando Primary Care Physician [phone] Encounter [facility] [place] Date(s): 06/26/22 - 07/26/[address] [address]- Attending Physician: Shakir Garcia Admitting Physician: Shakir Garcia Referring Physician: AdmShakir gonzalez Allergies, Adverse Reactions, Alerts Substance Reaction Severity [...] if the prescr... Start Date: 05/11/22 Status: Ordered ibuprofen 600 mg oral tablet 600 mg, 1, tablet, By Mouth, 3 times a day, # 90 tablet, Refills 0, Tot. Refills 0, Maintenance, 05/15/22 9:44:00 EST, Route to Pharmacy Electronically, [facility], Partial fill uponpatient request if the prescription is for a schedule I... Start Date: 05/15/22 Status: Ordered MiraLax oral powder for reconstitution = 17 Gm, By Mouth, Daily, dissolve in water before taking, # 527 Gm, 0 Refills, Maintenance, 05/11/22 14:24:00 EST, REC Powder, [facility], Partial fill upon patient request if the prescription is for a schedule II opioid drug., 17 Gm By... Start Date: 05/11/22 Status: Ordered ondansetron 4 mg oral tablet, disintegrating 1 tablet = 4 mg, By Mouth, Every 6 hours, PRN Nausea & Vomiting, # 12 tablet, 1 Refills, Maintenance, 05/14/22 13:50:00 EST, Tablet, [facility], Partial fill upon patient requestif the prescription is for a schedule II opioid drug., 57,... Start Date: 05/14/22 Status: Ordered Multivitamin Tablet 1 tablet, By Mouth, Daily, 0 Refills, Maintenance, 12/07/18 18:36:22 EDT, Tablet Start Date: 12/07/18 Status: Ordered Multivitamins with Folic Acid 1 mg oral tablet 1 tablet, By Mouth, Daily, # 90 tablet, 3 Refills, Maintenance, 04/15/22 16:45:00 EST, Tablet, [facility], Partial fill upon patient request if the prescription is for a schedule II opioid drug., 1 tablet By Mouth Daily, 57, kg, 04/14/22... Start Date: 04/15/22 Status: Ordered Reglan 10 mg oral tablet 1 tablet = 10 mg, By Mouth, 4 times a day, # 120 tablet, 0 Refills, Maintenance, 05/11/22 14:24:00 EST, Tablet, [facility], Partial fill upon patient request if the prescription is for a schedule II opioid drug., 57, kg, 04/14/22 15:10:00... Start Date: 05/11/22 Status: Ordered senna - oral tablet 2 tablet, By Mouth, Daily at bedtime, PRN for constipation, # 60 tablet, 2 Refills, Maintenance, 05/11/22 14:24:00 EST, Tablet, [facility], Partial fill upon patient request if the prescription is for a schedule II opioid drug., 57, kg, 1... Start Date: 05/11/22 Status: Ordered Tylenol 8 Hour 650 mg oral tablet, extended release 2 tablet = 1,300 mg, By Mouth, Every 8 hours, PRN as needed for pain, # 24 tablet, 0 Refills, Maintenance, 05/15/22 9:45:00 EST, ER Tablet, [facility], Partial fill upon patient request if the prescription is for a schedule II opioid drug... Start Date: 05/15/22 Status: Ordered Unisom 25 mg oral tablet 1 tablet = 25 mg, By Mouth, Daily, 15 to 30 minutes before bed, # 30 tablet, 1 Refills, Acute 04/15/23 16:46:00 EST, 04/15/22 16:45:00 EST, Tablet, [facility], Partial fill upon patient request if the prescription is for a schedule II opi... Start Date: 04/15/22 Stop Date: 04/15/23 Status: Ordered Vitamin B6 25 mg oral tablet 1 tablet [...] Condition Confirmation Course Effective Dates Status Health St atus Informant Asthma Confirmed Active Marijuana use Confirmed Active Migraines Confirmed Active premature rupture of membranes Confirmed Active Tobacco use Confirmed Active Twin dichorionic diamniotic placenta Confirmed Active Social History Social History Type Response Sex Female Patient Care team information Care Team Personnel Name: Katharina Corona MD Position: [facility] Physician (General Medicine) Member Role: PCP Address: Address: [address] [place] [address]- Care Team Related Persons Name: DANYEL BORJA Address: home [address] [place] [address]
--- OUTSIDE RECORDS SUMMARY | 2023-02-22 03:55 | XMS_ITS | Continuity of Care Document ---
Author Name Unknown Organization [facility] Address [address] [place] [address]- Care Team Providers Care Photo Graphics Librarian Name Role Phone Cj STONE, Katharina Obando Primary Care Physician Encounter [facility] [place] Date(s): 05/29/22 - 07/26/[address] [address]- Attending Physician: Terra Smyth CNM Admitting Physician: Terra Smyth CNM Allergies, Adverse Reactions, Alerts Substance Reaction Severity [...] Team Personnel Name: Katharina Corona MD Position: [facility] Physician (General Medicine) Member Role: PCP Address: Address: [address] [place] [address]- Care Team Related Persons Name: DANYEL BORJA Address: home [address] [place] [address]
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
[2023-02-22 04:14] LABS: Influenza A PCR NEGATIVE (Negative); Influenza B PCR NEGATIVE (Negative); Resp Syncy Virus RNA Qual PCR NEGATIVE (Negative); SARS COV2 PCR INHOUSE NEGATIVE (Negative)
[2023-02-22 04:15] LABS: Alanine Aminotransferase 18 U/L (0-31); Albumin Level 4.8 g/dL (3.5-5.0); Alkaline Phosphatase 93 U/L (39-117); Anion Gap 15 (12-20); Aspartate Amino Transferase 21 U/L (5-31); Bilirubin Total 0.7 mg/dL (0.0-1.0); Blood Urea Nitrogen 13 mg/dL (9-16); Carbon Dioxide 23 mmol/L (22-29); Chloride 104 mmol/L (96-108); Creatinine Clr Calc Pharmacy 90.8; Estimated Glomerular Filt Rate > 60; Glucose Random 109 mg/dL (60-115); HCG Quantitative < 2 mIU/mL; Potassium 3.3 mmol/L (3.3-5.1); Sodium 139 mmol/L (135-145); Total Protein 8.7 g/dL (6.5-8.0)
[2023-02-22] MEDS: Ketorolac Tromethamine 15 MG/ML VIAL IVPUSH (04:18)
[2023-02-22] MEDS: diphenhydrAMINE HCL 50 MG/ML VIAL IVPUSH (04:18)
[2023-02-22] MEDS: Metoclopramide HCl 10 MG/2 ML VIAL IVPUSH (04:18)
[2023-02-22] MEDS: 0.9 % Sodium Chloride 1,000 ML 999 ML IV (04:19)
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
[2023-02-22 05:41] VITALS: BP 134/80; PULSE 79; RESP 15; O2SAT 100
--- NOTE | 2023-02-22 05:58 | PC.NURSE ---
Pt reports effectiveness to meds given.
== END 2023-02-22 06:41 | disposition home or self-care (01) ==
PROVIDERS: Emergency Provider Emergency Medicine Emergency Medical Services
DX: G43.009 Migraine without aura, not intractable, without status migrainosus (principal); E86.0 Dehydration; R11.2 Nausea with vomiting, unspecified; Z20.822 Contact with and (suspected) exposure to COVID-19; Z20.828 Contact with and (suspected) exposure to other viral communicable diseases; Z79.899 Other long term (current) drug therapy
CPT/HCPCS: 0241U; 36415; 80053; 84702; 85027; 96361; 96374; 96375; 99284; J1200; J1885; J2765

== ENCOUNTER 2024-03-16 08:12 | Emergency (ER) | payer OTHER, SELFPAY ==
--- NOTE | ~2024-03-16 | XR_ITS ---
EXAMINATION: XR CHEST 2 VIEW CLINICAL INFORMATION: Cough, viral illness COMPARISON: None TECHNIQUE: PA and lateral views of the chest obtained. FINDINGS: The lungs are clear. There are no pleural effusions. The cardiomediastinal silhouette is normal. XR/XR chest 2V IMPRESSION: No acute cardiopulmonary disease. Electronically signed by: Liang Arrington MD 03/16/2024 09:50 AM EDT RP
[2024-03-16 08:16] VITALS: BP 120/80; PULSE 90; O2SAT 98
[2024-03-16 08:25] VITALS: BP 128/82; PULSE 92; RESP 18; TEMP 36.4; O2SAT 98; BMI 23.6
--- NOTE | 2024-03-16 08:53 | ED.HA ---
HPI - Headache General Chief Complaint: Headache Stated Complaint: MIGRAINE,NAUSEA SINCE T-1 PER EMS Time Seen by Provider: 03/16/24 08:15 Source: patient and EMS Mode of arrival: EMS Limitations: no limitations History of Present Illness ED Provider: Dasia Sanders PA-C HPI Narrative: 28 yo F with a past medical history of migraines presents to the ED from home via EMS c/o migraine headache x1 day, viral illness with congestion, nausea, vomiting, and diarrhea. Patient states that the migraine headache started yesterday morning has been constant and worsening since. She describes the pain is being ?all over?. She tried naproxen x4 yesterday with no relief. She also endorses the onset of a viral illness with congestion for which she thinks she got from her children. Patient reports chills, photophobia, intermittent cough and nausea with 2 episodes of vomiting this morning, as well as diarrhea since yesterday. She is currently on her menstrual cycle. Denies fever, shortness of breath, chest pain, abdominal pain, urinary symptoms including pain and burning while urinating. No further complaints at this time. MD elicited complaint: migraine Pertinent past history: migraines Onset (ago): day(s) Onset description: gradually Location: generalized Severity: severe Quality & Timing: aching Exacerbating factors: exertion, light and noise Relieving factors: rest Context: occurred at rest Associated symptoms: nausea, vomiting and photophobia Treatments prior to arrival: none Related Data Previous Rx's ?Medication ?Instructions ?Recorded clindamycin HCl 300 mg capsule 300 mg PO QID #40 caps 09/25/20 amoxicillin 875 mg-potassium 1 tab PO BID 7 days #14 tabs 07/17/22 clavulanate 125 mg tablet metoclopramide HCl 10 mg tablet 10 mg PO Q6H PRN nausea and 02/22/23 (Reglan) vomiting #14 tabs [id number]-clluecgmegrqn-qewrhwbs 1 tab PO Q6H PRN pain #10 tabs 03/16/24 50 mg-325 mg-40 mg tablet ondansetron 4 mg disintegrating 4 mg PO Q8H PRN nausea and 03/16/24 tablet vomiting #10 tabs Allergies Allergy/AdvReac Type Severity Reaction Status Date / Time morphine [MORPHINE] AdvReac Unknown SHAKING,TAC Verified 03/16/24 08:27 HYCARDIA Review of Systems Review of Systems: Yes all other systems are reviewed and are negative [facility] Past Medical History Medical History delivery delivered Social History Social History Alcohol intake: current Alcohol intake frequency: holidays/special occasions only Smoked in Last 30 Days: No Use of substances other than those prescribed or required for medical reasons: Yes Substance Use Type: Marijuana Substance Use Frequency: Daily Last Used Substance: Days (ago) Advance Directives: No Advance Directives Information Provided: No Do you have a plan to hurt others: No Plan Patient : No Physical Exam Vital Signs: Vital Signs: Last Vital Signs Temp 98 F 03/16/24 11:40 Pulse 89 03/16/24 11:40 Resp 16 03/16/24 11:40 BP 114/71 03/16/24 11:40 Pulse Ox 97 03/16/24 11:40 O2 Del Method Room Air 03/16/24 11:40 BMI result Body Mass Index 23.6 Appearance: Alert. Oriented X3. Patient is sitting on the stretcher, crying, in moderate distress. Head: normocephalic, atraumatic. Eyes: Pupils equal, round and reactive to light. ENT: Pharynx with mild erythema. No tonsillar swelling or exudate. Neck: Normal inspection. Neck supple. CVS: Normal heart rate and rhythm. Pulses normal. Respiratory: No respiratory distress. Breath sounds normal. Abdomen: Soft and nontender, nondistended. Skin: Skin warm and dry. Normal skin color. Normal skin turgor. No rashes. Extremities: No lower extremity edema. No joint swelling. Neuro/psych: Oriented X 3. CN II-XII grossly intact. Normal speech and cognition. Medications Administered Discontinued Medications Generic Name Dose Route Start Last Admin Trade Name Freq PRN Reason Stop Dose Admin Diphenhydramine HCl 50 mg 03/16/24 08:43 03/16/24 09:12 Diphenhydramine Hcl 50 Mg/Ml Vial IVPUSH 03/16/24 08:44 50 mg ONCE ONE Administration Ketorolac Tromethamine 30 mg 03/16/24 08:43 03/16/24 09:06 Ketorolac Tromethamine 30 Mg/Ml Vial IVPUSH 03/16/24 08:44 30 mg ONCE ONE Administration Metoclopramide HCl 10 mg 03/16/24 08:43 03/16/24 09:12 Metoclopramide Hcl 10 Mg/2 Ml Vial IVPUSH 03/16/24 08:44 10 mg ONCE ONE Administration Medical Decision Making Medical Decision Making [facility] Narrative: 28 yo F with a past medical history of migraines presents to the ED c/o migraine headache x1 day, viral illness with congestion, nausea, vomiting, and diarrhea. Patient is sitting on the stretcher, crying, in moderate distress, pharynx with mild erythema, but no tonsillar swelling or exudate, PERRLA, abdomen benign with concern for migraine headache, viral illness including COVID-19, flu, RSV, pneumonia, gastroenteritis. Vital signs are stable with a BP of 120/82, HR of 92, afebrile at 97.6 F, saturating well on room air at 98%. Labs show a leukocytosis of 19.7 concerning for infection. COVID-19, flu, RSV swabs are negative. Plan: Labs, viral swabs, CXR, migraine cocktail, nausea control. Patient was treated with intravenous Reglan, Toradol, Benadryl. She was monitored closely. Leukocytosis prompted chest x-ray which was negative for acute pneumonia or other abnormalities. Other lab workup was unremarkable. Upon review of her prior labs she has a chronically elevated white blood cell count. No evidence of acute infection at this time. Leukocytosis likely reactive from recurrent vomiting. Upon re-evaluation patient is feeling much better after the medications. She is wanting to go home. Will discharge home with p.r.n. Zofran and Fioricet. Encouraged follow-up with her provider at [facility] to arrange further evaluation of her recurrent migraines. Patient expressed understanding. Stable for discharge home with outpatient follow-up. Return precautions were discussed Differential Diagnosis Differential Diagnoses: The differential diagnosis associated with the presentation includes Migraine headache, tension headache, cluster headache, , gastroenteritis, viral illness like COVID, flu, RSV Lab Data [facility] Lab Attestation statement: I reviewed the patient's lab results. Leukocytosis, no major metabolic derangement, no anemia 03/16/24 09:02 03/16/24 09:02 Labs: Lab Results 03/16/24 Range/Units 09:02 WBC 19.7 H (4.8-10.8) X10*3/uL RBC 5.06 (4.20-5.50) X10*6/uL Hgb 15.2 (12.0-16.0) g/dl Hct 44.7 (37.0-47.0) % MCV 88.3 (80.0-98.0) fL MCH 30.0 (27.0-33.0) pg MCHC 34.0 (31.0-35.0) g/dl RDW 14.6 (11.0-16.0) % Plt Count 310 (160-400) X10*3/uL MPV 9.7 (9.4-12.3) fL Immature Gran % (Auto) 0.5 H (0.0-0.4) % Neut % (Auto) 87.0 H (45-73) % Lymph % (Auto) 8.8 L (20-40) % [place] % (Auto) 2.7 (2-11) % Eos % (Auto) 0.7 (0-4) % Baso % (Auto) 0.3 (0-2) % Lymph # (Auto) 1.7 (1.2-4.9) X10*3/uL [place] # (Auto) 0.5 (0.1-1.2) X10*3/uL Eos # (Auto) 0.1 (0.0-0.4) X10*3/uL Baso # (Auto) 0.1 (0.0-0.2) X10*3/uL Abs Immat Gran (auto) 0.10 H (0.00-0.03) X10*3/uL Absolute Neuts (auto) 17.1 H (2.0-8.3) x10*3/uL Absolute Nucleated RBC 0.000 (0.0-0.012) X10*3/uL Nucleated RBC % (auto) 0.0 (0.0-0.2) /100WBC Sodium 143 (135-145) mmol/L Potassium 3.6 (3.3-5.1) mmol/L Chloride 110 H (96-108) mmol/L Carbon Dioxide 26 (22-29) mmol/L Anion Gap 11 L (12-20) BUN 10 (9-16) mg/dL Creatinine 0.61 (0.5-1.4) mg/dL Estim Creat Clear Calc 100.3 Estimated GFR > 60 Random Glucose 111 (60-115) mg/dL Calcium 9.2 D (8.4-10.2) mg/dL Magnesium 2.0 (1.6-2.6) mg/dL Total Bilirubin 0.5 (0.0-1.0) mg/dL Direct Bilirubin 0.2 (0.0-0.5) mg/dL AST 18 (5-31) U/L ALT 21 (0-31) U/L Alkaline Phosphatase 97 (39-117) U/L Total Protein 7.7 (6.5-8.0) g/dL Albumin 4.2 (3.5-5.0) g/dL Urine Color Yellow Urine Appearance Clear Urine pH 6.5 (5.0-9.0) Ur Specific [place] <= 1.005 (1.005-1.025) Urine Protein Negative (Neg-Trace) mg/dL Urine Glucose (UA) Negative (Negative) mg/dL Urine Ketones Negative (Negative) mg/dL Urine Blood Large (3+) H (Negative) Urine Nitrite Negative (Negative) Ur Leukocyte Esterase Negative (Negative) Urine RBC 0-2 (0-2) /HPF Urine WBC 0-5 (0-5) /HPF Ur Squamous Epith Cells 0-2 (0-2) /HPF Urine Bacteria None Seen (None Seen) Hyaline Casts 0-2 (0-2) /LPF Urine Test NEGATIVE (NEGATIVE) Urine Opiates Screen Not Detected (Not Detect) Ur Buprenorphine Scrn Not Detected (Not Detect) ng/mL Ur Oxycodone Screen Positive H (Not Detect) ng/mL Urine Methadone Screen Not Detected (Not Detect) ng/mL Urine Fentanyl Screen Not Detected (Not Detect) Ur Barbiturates Screen Not Detected (Not Detect) Ur Phencyclidine Scrn Not Detected (Not Detect) Ur Amphetamines Screen Not Detected (Not Detect) U Benzodiazepines Scrn Not Detected (Not Detect) Urine Cocaine Screen Not Detected (Not Detect) U Marijuana (THC) Screen POSITIVE H (Not Detect) Influenza Type A (PCR) NEGATIVE (Negative) Influenza Type B (PCR) NEGATIVE (Negative) RSV RNA Qual (PCR) NEGATIVE (Negative) SARS-CoV-2 RNA (RT-PCR) NEGATIVE (Negative) Independent Interpretation I performed an independent interpretation of an: Plain X-Ray Interpretation: No obvious infiltrate to suggest pneumonia Radiology Impression Discussion of test interpretation with radiology: I have reviewed the radiologist's reading. Radiologist Impression: XR/XR chest 2V IMPRESSION: No acute cardiopulmonary disease Independent Historian Clinical information obtained from an independent historian. History obtained from or confirmed by: EMS External Record Review External record reviewed: Prior outpatient labs Tests considered The following testing was considered but not selected: CT scan of her abdomen was considered however abdominal exam was reassuring, low suspicion for acute abdominal process Prescription Management I considered prescription management with: Pain Medication and Other (Antiemetic) Chronic Conditions Patient?s care impacted by: Other (Migraines) Critical Care Time Critical Care Time Critical Care Time: No Discharge Plan Discharge Clinical Impression: Migraine Patient Disposition: Home, Self-Care Instructions: Migraine Headache (ED) Additional Instructions: You lab workup today was unremarkable, aside from elevated white blood cell count which is likely from vomiting. Other labs were reassuring. Your urine test was negative for infection and . You most likely have a viral GI bug also known as gastroenteritis. Treatment is supportive care, symptoms usually resolve on their own in 48-72 hours. Recommend rest and plenty of oral hydration. Stick to a bland diet like soup and toast while you are not feeling well. Take the prescribed medication as needed for nausea. Take the prescribed firocet as needed for migraine. Recommend over the counter Pepto Bismol or Imodium for upset stomach and diarrhea. Follow up with your doctor as needed. If you develop new or worsening symptoms call 911 or come back to the ER for further evaluation. Prescriptions: New ondansetron 4 mg tablet,disintegrating 4 mg PO Q8H PRN (Reason: nausea and vomiting) Qty: 10 0RF [id number]-vdlszizfetnpd-uasd 50-325-40 mg tablet 1 tab PO Q6H PRN (Reason: pain) Qty: 10 0RF No Action clindamycin HCl 300 mg capsule 300 mg PO QID Qty: 40 0RF amoxicillin-pot clavulanate 875-125 mg tablet 1 tab PO BID 7 Days Qty: 14 0RF metoclopramide HCl [Reglan] 10 mg tablet 10 mg PO Q6H PRN (Reason: nausea and vomiting) Qty: 14 0RF Interventions: ED Discharge Assessment Last Done: 03/16/24 11:40 Discharge Date/Time: 03/16/24 11:40 Print Language: Chinese
[2024-03-16] MEDS: Ketorolac Tromethamine 30 MG/ML VIAL IVPUSH (09:06)
[2024-03-16 09:08] LABS: MANUAL DIFF FLAG NO
[2024-03-16 09:11] LABS: Basophils Absolute Auto 0.1 X10*3/uL (0.0-0.2); Basophils Percent Auto 0.3 % (0-2); Eosinophils Absolute Auto 0.1 X10*3/uL (0.0-0.4); Eosinophils Percent Auto 0.7 % (0-4); Hematocrit 44.7 % (37.0-47.0); Hemoglobin 15.2 g/dl (12.0-16.0); Imm Gran Pct Auto 0.5 % (0.0-0.4); Lymphocytes Absolute Auto 1.7 X10*3/uL (1.2-4.9); Lymphocytes Percent Auto 8.8 % (20-40); Mean Corpuscular Volume 88.3 fL (80.0-98.0); Mean Platelet Volume 9.7 fL (9.4-12.3); Monocytes Absolute Auto 0.5 X10*3/uL (0.1-1.2); Monocytes Percent Auto 2.7 % (2-11); Neutrophils Absolute Auto 17.1 x10*3/uL (2.0-8.3); Platelet Count 310 X10*3/uL (160-400); Red Blood Count 5.06 X10*6/uL (4.20-5.50); Red Cell Distribution Width 14.6 % (11.0-16.0); White Blood Count 19.7 X10*3/uL (4.8-10.8)
[2024-03-16] MEDS: diphenhydrAMINE HCL 50 MG/ML VIAL IVPUSH (09:12)
[2024-03-16] MEDS: Metoclopramide HCl 10 MG/2 ML VIAL IVPUSH (09:12)
[2024-03-16 09:16] LABS: Appearance Urine Clear; Color Urine Yellow; Glucose Urine UA Negative (Negative); Leukocyte Esterase Urine Negative (Negative); Nitrite Urine Negative (Negative); PH 6.5 (5.0-9.0); Specific Gravity - Urine <= 1.005 (1.005-1.025); UMIC TRIGGER UACC YES; Urine Blood Large (3+) (Negative); Urine Ketones Negative (Negative); Urine Protein Negative (Neg-Trace)
[2024-03-16 09:17] VITALS: BP 128/82; PULSE 92; RESP 18; TEMP 36.4; O2SAT 98
[2024-03-16 09:17] LABS: UPreg QC Valid YES; Urine Pregnancy NEGATIVE (NEGATIVE)
[2024-03-16 09:21] LABS: Amphetamine Screen Urine Not Detected (Not Detect); Barbiturates, Urine Not Detected (Not Detect); Benzodiazepines Screen Urine Not Detected (Not Detect); Buprenorphine Scr Not Detected (Not Detect); Cannabinoid Screen Urine POSITIVE (Not Detect); Cocaine Screen Urine Not Detected (Not Detect); Fentanyl, urine Not Detected (Not Detect); Methadone Screen, Urine Not Detected (Not Detect); Opiate Screen Urine Not Detected (Not Detect); Oxycodone Screen Urine Positive (Not Detect); Phencyclidine Screen Urine Not Detected (Not Detect)
--- NOTE | 2024-03-16 09:24 | PC.NURSE ---
Pt comes to ED today via EMS for excruciating migraine pain 10/10 starting yesterday. Pt reports Hx migraines that typically is resolved with Excedrin at home. Took 4 Excedrin yesterday with no relief. A&Ox3, VSS, afebrile. Pt is restless d/t discomfort. Report pain 10/10 and nausea. IV access placed by EMS to L forearm. Pt medicated per AUG and is now attempting to rest with lights dimmed and noise limited. Awaiting blood lab results.
[2024-03-16 09:26] LABS: Bacteria Urine None Seen (None Seen); Hyaline Casts Urine 0-2 /LPF (0-2); RBC Urine 0-2 /HPF (0-2); Squamous Epithelial Cell Urine 0-2 /HPF (0-2); WBC Urine 0-5 /HPF (0-5)
[2024-03-16 09:29] LABS: Alanine Aminotransferase 21 U/L (0-31); Albumin Level 4.2 g/dL (3.5-5.0); Alkaline Phosphatase 97 U/L (39-117); Anion Gap 11 (12-20); Aspartate Amino Transferase 18 U/L (5-31); Bilirubin Direct 0.2 mg/dL (0.0-0.5); Bilirubin Total 0.5 mg/dL (0.0-1.0); Blood Urea Nitrogen 10 mg/dL (9-16); Calcium 9.2 mg/dL (8.4-10.2); Carbon Dioxide 26 mmol/L (22-29); Chloride 110 mmol/L (96-108); Creatinine Clr Calc Pharmacy 100.3; Estimated Glomerular Filt Rate > 60; Glucose Random 111 mg/dL (60-115); Potassium 3.6 mmol/L (3.3-5.1); Sodium 143 mmol/L (135-145); Total Protein 7.7 g/dL (6.5-8.0)
[2024-03-16 09:54] LABS: Influenza A PCR NEGATIVE (Negative); Influenza B PCR NEGATIVE (Negative); Resp Syncy Virus RNA Qual PCR NEGATIVE (Negative); SARS COV2 PCR INHOUSE NEGATIVE (Negative)
[2024-03-16 11:40] VITALS: BP 114/71; PULSE 89; RESP 16; TEMP 36.6; O2SAT 97
== END 2024-03-16 11:40 | disposition home or self-care (01) ==
PROVIDERS: Physician Assistant; Emergency Provider Emergency Medicine
DX: G43.909 Migraine, unspecified, not intractable, without status migrainosus (principal); Z03.818 Encounter for observation for suspected exposure to other biological agents ruled out; R05.9 Cough, unspecified; Z79.899 Other long term (current) drug therapy
CPT/HCPCS: 0241U; 71046; 80048; 80076; 80307; 81001; 81025; 83735; 85025; 96374; 96375; 99284; J1200; J1885; J2765

== ENCOUNTER 2024-10-29 21:15 | Emergency (ER) | payer OTHER, SELFPAY ==
[2024-10-29 21:19] VITALS: BP 143/91; PULSE 96; RESP 16; TEMP 36.1; O2SAT 97; BMI 26.7
--- NOTE | 2024-10-29 21:31 | ED_ITS ---
HPI - Headache General Chief Complaint: Headache Stated Complaint: migraine,high bp Time Seen by Provider: 10/29/24 21:31 Source: patient Mode of arrival: ambulatory Limitations: no limitations History of Present Illness ED Provider: Dr. Santy Kevin HPI Narrative: 29-year-old female with a history of migraines, hypertension who presents emergency department for evaluation of elevated blood pressures, headache and chest pain. Patient states that she was recently told that she had elevated blood pressures and has been monitoring her blood pressure 3 times a day. She states that today at around 07:00 hours she developed a headache which was consistent with her migraines. She states that she has a pressure sensation located throughout her entire head associated with nausea but no vomiting, photophobia and phonophobia. She states the pain is 10/10. She took her blood pressure was elevated at 150 2/85 and she was told by your doctor that she can not take Excedrin migraine when she has high blood pressure. The patient took Tylenol with no relief of her headache. Patient also states that she has been having intermittent chest pain for the last 2 weeks. She points to her sternum and costochondral joints bilaterally when asked to localize the pain. She states it is a sharp pain that will last minutes and then resolve. She states she will get the pain frequently throughout the day. At the time my evaluation she states she was having sharp chest pain which is 3/10 at its worse. Patient also had a right breast mass which was recently biopsied and she was told that it was benign. She states she has persistent black and blueness of her right breast in the area of the biopsy. She denied fever, chills, cough, shortness of breath, dyspnea on exertion. Related Data Previous Rx's ?Medication ?Instructions ?Recorded clindamycin HCl 300 mg capsule 300 mg PO QID #40 caps 09/25/20 amoxicillin 875 mg-potassium 1 tab PO BID 7 days #14 tabs 07/17/22 clavulanate 125 mg tablet metoclopramide HCl 10 mg tablet 10 mg PO Q6H PRN nausea and 02/22/23 (Reglan) vomiting #14 tabs dtjpumfbbw-ngtiuogkcqedj-inhxdnau 1 tab PO Q6H PRN pain #10 tabs 03/16/24 50 mg-325 mg-40 mg tablet ondansetron 4 mg disintegrating 4 mg PO Q8H PRN nausea and 10/09/24 tablet vomiting #10 tabs Allergies Allergy/AdvReac Type Severity Reaction Status Date / Time morphine [MORPHINE] AdvReac Unknown SHAKING,TAC Verified 10/29/24 21:21 HYCARDIA Review of Systems 2 Review of Systems: Yes all other systems are reviewed and are negative [facility] Past Medical History [facility] Narrative: Social history: Patient does smoke cigarettes. She denies alcohol use. She smokes marijuana. Medical History delivery delivered Social History Social History Alcohol intake: current Alcohol intake frequency: holidays/special occasions only Smoked in Last 30 Days: Yes Use of substances other than those prescribed or required for medical reasons: Yes Substance Use Type: Marijuana Advance Directives: No Advance Directives Information Provided: No Do you have a plan to hurt others: No Plan Patient : No Physical Exam 2 Vital Signs: Vital Signs: Last Vital Signs Temp 97.9 F 10/29/24 22:27 Pulse 78 10/29/24 22:27 Resp 17 10/29/24 22:27 BP 122/76 10/29/24 22:27 Pulse Ox 98 10/29/24 22:27 O2 Del Method Room Air 10/29/24 22:27 BMI result Body Mass Index 26.7 Vital signs revealed a normal blood pressure of 122/76 , other vital signs were normal as well Exam: General: Awake, appears to be in distress secondary to her headache and her photophobia Head: Normocephalic, atraumatic EENT: PERRL, Lids normal, sclera normal, conjunctiva normal, nose normal , ears normal, throat without erythema or exudates Neck: Supple, no adenopathy Lung: breath sounds symmetric, no wheezing, rales or rhonchi Chest: symmetric movement, moderate sternal and costochondral tenderness. Patient does have ecchymosis of her right breast which is consistent with her recent breast biopsy Heart: regular rate and rhythm, normal S1, S2 no murmurs or rubs Abdomen: soft, non-tender, nondistended, normal bowel sounds Back: no vertebral tenderness, no CVAT Extremities: no deformities, moves all extremities symmetrically Neuro: Awake, alert, oriented, normal speech, cranial nerves intact, moves all extremities symmetrically Psych: Pleasant, cooperative Medications Administered Discontinued Medications Generic Name Dose Route Start Last Admin Trade Name Cornelius PRN Reason Stop Dose Admin Diphenhydramine HCl 50 mg 10/29/24 21:55 10/29/24 22:12 Diphenhydramine Hcl 50 Mg/Ml Vial IVPUSH 10/29/24 21:56 50 mg ONCE STA Administration Sodium Chloride 1,000 mls @ 999 mls/hr 10/29/24 22:23 10/29/24 22:43 Ns IV 10/29/24 23:23 999 mls/hr .Q1H1M STA Administration Ketorolac Tromethamine 15 mg 10/29/24 21:55 10/29/24 22:11 Ketorolac Tromethamine 15 Mg/Ml Vial IVPUSH 10/29/24 21:56 15 mg ONCE STA Administration Metoclopramide HCl 10 mg 10/29/24 21:55 10/29/24 22:17 Metoclopramide Hcl 10 Mg/2 Ml Vial IVPUSH 10/29/24 21:56 10 mg ONCE STA Administration Medical Decision Making Medical Decision Making MDM Narrative: 29-year-old female with a history of migraines, hypertension who presents emergency department for evaluation of elevated blood pressures, headache and chest pain. Patient states that she was recently told that she had elevated blood pressures and has been monitoring her blood pressure 3 times a day. She states that today at around 07:00 hours she developed a headache which was consistent with her migraines. She states that she has a pressure sensation located throughout her entire head associated with nausea but no vomiting, photophobia and phonophobia. She states the pain is 10/10. She took her blood pressure was elevated at 150 2/85 and she was told by your doctor that she can not take Excedrin migraine when she has high blood pressure. The patient took Tylenol with no relief of her headache. Patient also states that she has been having intermittent chest pain for the last 2 weeks. She points to her sternum and costochondral joints bilaterally when asked to localize the pain. She states it is a sharp pain that will last minutes and then resolve. She states she will get the pain frequently throughout the day. At the time my evaluation she states she was having sharp chest pain which is 3/10 at its worse. Patient also had a right breast mass which was recently biopsied and she was told that it was benign. She states she has persistent black and blueness of her right breast in the area of the biopsy. Vital signs revealed normal blood pressure. Patient did have tenderness palpation of her anterior chest wall. She also has ecchymosis of the right breast consistent with a recent breast biopsy. Neurologic exam was nonfocal. Differential diagnosis: ?Includes but is not limited to migraine headache, essential hypertension, elevated blood pressure secondary to pain, myocardial infarction, myocardial ischemia, costochondritis, anemia, electrolyte abnormality Course: 23:43 My independent interpretation patient's laboratory evaluation is as follows: WBC elevated 15,300-patient has had similar elevations in the past, most likely secondary to pain not relieved to in his infection. CMP was normal. High sensitive troponin is a troponin I was below detectable limits. Twelve EKG was unremarkable. Patient's headache was treated with normal saline IV x1 L, Toradol 15 mg IV, Reglan 10 mg IV and Benadryl 50 mg IV. The patient had complete resolution of her headache. At this time I believe the patient's headache is consistent with a migraine syndrome. I did tell the patient that she can take her Excedrin migraine for her headaches and I do not think that this is causing you to have high blood pressure. The patient's chest pain is most likely consistent with costochondritis and I did discuss this with her. She was advised to take ibuprofen 400 mg 3 times a day as needed for chest pain. Patient was instructed to take her blood pressure readings on Mondays, Wednesdays and Fridays in the morning, write these readings down for at least 2 weeks and discuss these with the doctor to see if she needs to be started on blood pressure medications or if she can pursue lifestyle modification for hospital hypertension. Admission/Observation Consideration of admission/observation: Escalation of care including admission/observation considered (Yes) Lab Data MDM Lab Attestation statement: I reviewed the patient's lab results. 10/29/24 22:06 10/29/24 22:06 Labs: Lab Results 10/29/24 Range/Units 22:06 WBC 15.3 H (4.8-10.8) X10*3/uL RBC 5.00 (4.20-5.50) X10*6/uL Hgb 14.9 (12.0-16.0) g/dl Hct 41.9 (37.0-47.0) % MCV 83.8 (80.0-98.0) fL MCH 29.8 (27.0-33.0) pg MCHC 35.6 H (31.0-35.0) g/dl RDW 14.4 (11.0-16.0) % Plt Count 298 (160-400) X10*3/uL MPV 9.6 (9.4-12.3) fL Immature Gran % (Auto) 0.2 (0.0-0.4) % Neut % (Auto) 59.1 (45-73) % Lymph % (Auto) 32.7 (20-40) % Finney % (Auto) 6.1 (2-11) % Eos % (Auto) 1.6 (0-4) % Baso % (Auto) 0.3 (0-2) % Lymph # (Auto) 5.0 H (1.2-4.9) X10*3/uL Finney # (Auto) 0.9 (0.1-1.2) X10*3/uL Eos # (Auto) 0.3 (0.0-0.4) X10*3/uL Baso # (Auto) 0.0 (0.0-0.2) X10*3/uL Abs Immat Gran (auto) 0.03 (0.00-0.03) X10*3/uL Absolute Neuts (auto) 9.1 H (2.0-8.3) x10*3/uL Absolute Nucleated RBC 0.000 (0.0-0.012) X10*3/uL Nucleated RBC % (auto) 0.0 (0.0-0.2) /100WBC Sodium 139 (135-145) mmol/L Potassium 3.3 (3.3-5.1) mmol/L Chloride 105 (96-108) mmol/L Carbon Dioxide 26 (22-29) mmol/L Anion Gap 11 L (12-20) BUN 16 (9-16) mg/dL Creatinine 0.61 (0.5-1.4) mg/dL Estim Creat Clear Calc 105.2 Estimated GFR > 60 Random Glucose 94 (60-115) mg/dL Calcium 9.3 (8.4-10.2) mg/dL Total Bilirubin 0.3 (0.0-1.0) mg/dL AST 25 (5-31) U/L ALT 19 (0-31) U/L Alkaline Phosphatase 92 (39-117) U/L Troponin I High Sens < 2.7 (<3.5-17.0) ng/L Total Protein 7.8 (6.5-8.0) g/dL Albumin 4.3 (3.5-5.0) g/dL Independent Interpretation I performed an independent interpretation of an: EKG Interpretation: My independent interpretation patient's 12 EKG done on 10/29/2024 at 22:04 hours is as follows: Normal sinus rhythm with a rate of 71, normal DC interval, QRS duration QTC interval, no ST segment elevation, no ST segment depression, no significant T-wave abnormalities, no PACs, no PVCs, this is a normal EKG. Discharge Plan Discharge Clinical Impression: Migraine headache, Acute costochondritis Patient Disposition: Home, Self-Care Instructions: Costochondritis (ED) Additional Instructions: Your blood work was unremarkable. Your high sensitivity troponin I (marker for heart damage/heart attack) was below detectable limits. This is reassuring. At this time I believe that your chest pain is due to inflammation of the joints of your chest (costochondritis) Take ibuprofen 200 mg pills, 2 pills every 6 hours as needed for chest pain. Your headache was consistent with your migraine syndrome. I recommend that you continue taking your Excedrin migraine for your headaches since I do not think that this is the cause of your elevated blood pressure readings. High blood pressure instructions: The reason to check your blood pressure at home is to give your doctor an idea of what your blood pressure does when you are not in the doctor's office. Take your blood pressure in the mornings, Mondays , Wednesdays and Fridays and then write down these readings to discuss them with your doctor at your next visit. Do this for 2 weeks. If your doctor thinks that your blood pressures are too high then they will either increase your start you on high blood pressure medication, recommend lifestyle changes to see if this helps with your elevated blood pressures. If your doctor starts you on a blood pressure medications, it may take anywhere from 2-6 week before these medications work to reduce your blood pressure. Follow-up with your doctor to discuss your blood pressure readings in 2 weeks Please return to the emergency department if your symptoms get worse or if you develop any new symptoms that are concerning to you. Prescriptions: No Action clindamycin HCl 300 mg capsule 300 mg PO QID Qty: 40 0RF amoxicillin-pot clavulanate 875-125 mg tablet 1 tab PO BID 7 Days Qty: 14 0RF metoclopramide HCl [Reglan] 10 mg tablet 10 mg PO Q6H PRN (Reason: nausea and vomiting) Qty: 14 0RF ondansetron 4 mg tablet,disintegrating 4 mg PO Q8H PRN (Reason: nausea and vomiting) Qty: 10 0RF frbeycuagp-qwnhlzdmjkmiq-gnbm 50-325-40 mg tablet 1 tab PO Q6H PRN (Reason: pain) Qty: 10 0RF Print Language: Mexican
--- NOTE | 2024-10-29 21:56 | ECG_ITS ---
Test Reason : CHEST PAIN Blood Pressure : */* mmHG Vent. Rate : 71 BPM Atrial Rate : 71 BPM P-R Int : 150 ms QRS Dur : 78 ms QT Int : 416 ms P-R-T Axes : 54 75 48 degrees QTcB Int : 452 ms Normal sinus rhythm with sinus arrhythmia Normal ECG No previous ECGs available Referred By: Santy Kevin Electronically Signed By: Danish Salmeron
[2024-10-29] MEDS: Ketorolac Tromethamine 15 MG/ML VIAL IVPUSH (22:11)
[2024-10-29] MEDS: diphenhydrAMINE HCL 50 MG/ML VIAL IVPUSH (22:12)
[2024-10-29 22:15] LABS: Basophils Percent Auto 0.3 % (0-2); Eosinophils Absolute Auto 0.3 X10*3/uL (0.0-0.4); Eosinophils Percent Auto 1.6 % (0-4); Hematocrit 41.9 % (37.0-47.0); Hemoglobin 14.9 g/dl (12.0-16.0); Imm Gran Abs Auto 0.03 X10*3/uL (0.00-0.03); Imm Gran Pct Auto 0.2 % (0.0-0.4); Lymphocytes Percent Auto 32.7 % (20-40); MANUAL DIFF FLAG SCAN; Mean Corpuscular HGB Conc 35.6 g/dl (31.0-35.0); Mean Corpuscular Hemoglobin 29.8 pg (27.0-33.0); Mean Corpuscular Volume 83.8 fL (80.0-98.0); Mean Platelet Volume 9.6 fL (9.4-12.3); Monocytes Absolute Auto 0.9 X10*3/uL (0.1-1.2); Monocytes Percent Auto 6.1 % (2-11); Neutrophils Absolute Auto 9.1 x10*3/uL (2.0-8.3); Neutrophils Percent Auto 59.1 % (45-73); Platelet Count 298 X10*3/uL (160-400); Red Cell Distribution Width 14.4 % (11.0-16.0); SCAN SMEAR FLAG 1; White Blood Count 15.3 X10*3/uL (4.8-10.8)
--- OUTSIDE RECORDS SUMMARY | 2024-10-29 22:16 | XMS_ITS | Encounter Summary ---
Author Organization [employer] Address [address] [place] [address] Care Team Providers Care Harpooner Name Role Phone Dov Blanco MD Primary Care Provider [phone] Reason for Visit * Reason Onset Date Comments Hypertension 10/28/2024 Encounter Details Date Type Department Care Team ([facility] st Contact Info) Description 10/28/2024 Nurse Triage Adult Medicine [facility] [address] [place] [phone] Dov Blanco MD [address] [place] [address] Hypertension Social History Tobacco Use Types Packs/Day Years Used Date Smoking Tobacco: Every Day Cigarettes Smokeless Tobacco: Never Alcohol Use Standard Drinks/Week Comments No 0 (1 standard drink = 0.6 oz pur e alcohol) Comments Unknown Sex and Gender Information Value Date Recorded Sex Assigned at Not on file Legal Sex Female 9:02 AM EST Gender Identity Not on file Sexual Orientation Not on file documented as of this encounter Progress Notes * Mini Frost RN - 10/28/2024 4:59 PM EDT An appointment was made for her to be seen in the office on 11/03/24 at 2:[address] Blanco. She was instructed to go to the ER for any new or worsening symptoms including but not limited to chest pain, shortness of breath, headache. Reason for Disposition [1] Systolic BP >= 130 OR Diastolic >= 80 AND [2] not taking BP medications Answer Assessment - Initial Assessment Questions 1. BLOOD PRESSURE: What is your blood pressure? Did you take at least two measurements 5 minutesapart? Her BP was 149/93 2. ONSET: When did you take your blood pressure? Today 3. HOW: How did you take your blood pressure? (e.g., automatic home BP monitor, visiting nurse) Automatic BP cuff 4. HISTORY: Do you have a history of high blood pressure? No 5. MEDICINES: Are you taking any medicines for blood pressure? Have you missed any doses recently? No 6. OTHER SYMPTOMS: Do you have any symptoms? (e.g., blurred vision, chest pain, difficulty breathing, headache, weakness) Headaches and chest pain. No chest pain at this time. 7. : Is there any chance you are ? When was your last menstrual period? No. Her LMP was 1 week ago Protocols used: Blood Pressure - High-A- * Leona Arias - 10/28/2024 4:43 PM EDT The patient is calling in regards to Hypertension. The patient states that she is experiencing hypertension frequently were currently she had checked her BP of 149/93 and that she would like to know what to do from here. The patient would like to be seen or talk to someone to discuss what to do next. documented in this encounter Plan of Treatment Upcoming Encounters Date Type Department Care Team (Late st Contact Info) Description 11/03/2024 2:30 PM EDT Office Visit Adult Medicine [facility] [address] [place] [phone] Dov Blanco MD [address] [place] [address] 12/06/2024 1:15 PM EDT Consult General Surgery [facility] [address] [phone] Michelle Centeno MD 175 [facility] [address] [place] [address] 12/23/2024 11:30 AM EDT Office Visit [facility] Hematology Oncology [address] [place] [phone] Brandy Lee PA [address] [place] [address] 12/29/2024 11:00 AM EDT Consult [facility] [address] [phone] Tuan Kamara MD [address] [phone] documented as of this encounter Visit Diagnoses Not on filedocumented in this encounter Care Teams Harpooner Relationship Specialty Start Date End Date Dov Blanco MD [address] [place] [address] PCP - General 07/17/22 documented as of this encounter
[2024-10-29] MEDS: Metoclopramide HCl 10 MG/2 ML VIAL IVPUSH (22:17)
[2024-10-29 22:21] VITALS: BP 122/76; PULSE 60; RESP 16; O2SAT 97
[2024-10-29 22:26] LABS: Alanine Aminotransferase 19 U/L (0-31); Albumin Level 4.3 g/dL (3.5-5.0); Alkaline Phosphatase 92 U/L (39-117); Anion Gap 11 (12-20); Aspartate Amino Transferase 25 U/L (5-31); Bilirubin Total 0.3 mg/dL (0.0-1.0); Blood Urea Nitrogen 16 mg/dL (9-16); Calcium 9.3 mg/dL (8.4-10.2); Carbon Dioxide 26 mmol/L (22-29); Chloride 105 mmol/L (96-108); Creatinine Clr Calc Pharmacy 105.2; Estimated Glomerular Filt Rate > 60; Glucose Random 94 mg/dL (60-115); Potassium 3.3 mmol/L (3.3-5.1); Sodium 139 mmol/L (135-145); Total Protein 7.8 g/dL (6.5-8.0)
[2024-10-29 22:27] VITALS: BP 122/76; PULSE 78; RESP 17; TEMP 36.6; O2SAT 98
[2024-10-29 22:34] LABS: Troponin-I High Sensitivity < 2.7 ng/L (<3.5-17.0)
[2024-10-29] MEDS: 0.9 % Sodium Chloride 1,000 ML 999 ML IV (22:43)
[2024-10-29 23:37] LABS: SLIDE REVIEW VERIFIED
[2024-10-30 00:11] VITALS: BP 104/57; PULSE 64; RESP 14; TEMP 36.6; O2SAT 98
[2024-10-30 00:18] VITALS: BP 104/57; PULSE 64; RESP 14; TEMP 36.6; O2SAT 98
== END 2024-10-30 00:18 | disposition home or self-care (01) ==
PROVIDERS: Emergency Provider Emergency Medicine Emergency Medical Services
DX: G43.909 Migraine, unspecified, not intractable, without status migrainosus (principal); M94.0 Chondrocostal junction syndrome [Tietze]; R11.0 Nausea; Z79.899 Other long term (current) drug therapy
CPT/HCPCS: 36415; 80053; 84484; 85025; 93005; 96361; 96374; 96375; 99284; 99285; J1200; J1885; J2765

== ENCOUNTER → 2024-10-29 21:56 | Outpatient (BNV) | payer OTHER, SELFPAY | PROVIDERS: Emergency Provider Emergency Medicine Emergency Medical Services; Visit Provider Internal Medicine Cardiovascular Disease | DX: R07.9 Chest pain, unspecified (principal) | CPT/HCPCS: 93010 ==

== ENCOUNTER 2025-03-12 02:14 | Emergency (ER) | payer OTHER, SELFPAY ==
[2025-03-12 02:25] VITALS: BP 127/84; BP 144/88; PULSE 112; PULSE 87; RESP 16; TEMP 36.1; O2SAT 97; O2SAT 99; BMI 26.3
--- NOTE | 2025-03-12 02:49 | ED_ITS ---
HPI - General Adult General Chief complaint: Headache Stated complaint: Headache/ Vomiting Time Seen by Provider: 03/12/25 02:34 Source: patient Limitations: no limitations History of Present Illness ED Provider: Antonia Galan PA-C HPI narrative: 29-year-old female with a history of daily migraine, presents with refractory migraine headache. Patient states she recently started Depo-Provera, since she is having more frequent headaches. Patient typically uses Excedrin with a good relief from her symptoms. Associated preceding aura. Patient has a left-sided retro-orbital headache. Associated photophobia, phonophobia, dizziness, nausea vomiting. Denies neck pain, recent illness, fever. Related Data Previous Rx's ?Medication ?Instructions ?Recorded clindamycin HCl 300 mg capsule 300 mg PO QID #40 caps 09/25/20 amoxicillin 875 mg-potassium 1 tab PO BID 7 days #14 t abs 07/17/22 clavulanate 125 mg tablet metoclopramide HCl 10 mg tablet 10 mg PO Q6H PRN nause a and 02/22/23 (Reglan) vomiting #14 tabs skvglzapvh-lkatwyxvkfgdg-rohvfxbu 1 tab PO Q6H PRN trevor n #10 tabs 03/16/24 50 mg-325 mg-40 mg tablet ondansetron 4 mg disintegrating 4 mg PO Q8H PRN nausea and 03/16/24 tablet vomiting #10 tabs Allergies Allergy/AdvReac Type Severity Reaction Status Date / Time morphine (MORPHINE) AdvReac Unknown SHAKING,TAC Verified 03/12/25 02:28 HYCARDIA Review of Systems Review of Systems: Yes all other systems are reviewed and are negative Constitutional: Constitutional: Denies fatigue, Denies fever(s) and Reports headache(s) Eyes: Eyes: Reports photophobia ENT: Reports dizziness, Reports headache(s) and Denies neck pain Cardiovascular: Cardiovascular: Denies chest pain and Denies dyspnea Respiratory: Respiratory: Denies dyspnea Gastrointestinal: Gastrointestinal: Denies abdominal pain, Reports nausea and Reports vomiting Musculoskeletal: Musculoskeletal: Denies back pain and Denies neck pain Neurologic: Reports dizziness and Reports headache(s) Endocrine: Endocrine: Denies fatigue PMFSH Past Medical History Attestation statement: The following information was validated with the patient. Medical History delivery delivered Social History Social History Alcohol intake: current Alcohol intake frequency: holidays/special occasions only Smoked in Last 30 Days: Yes Use of substances other than those prescribed or required for medical reasons: No Substance Use Type: Marijuana Advance Directives: No Advance Directives Information Provided: Yes Do you have a plan to hurt others: No Plan Physical Exam ED Vital Signs: Vital Signs - 24 hr 03/12/25 02:25 Temperature 97.0 F Pulse Rate 87 Respiratory Rate 16 Blood Pressure 127/84 Pulse Oximetry 99 Oxygen Delivery Method Room Air BMI result Body Mass Index 26.3 Const Other: Alert appears uncomfortable Orientation/consciousness: patient oriented x3 Eyes Direct Ophthalmoscopy: photophobia Neck Neck: Yes full ROM and Yes no meningeal signs Resp Effort & Inspection: normal respiratory effort Cardio Other: Normal peripheral perfusion Skin Other: Warm dry no rash Neuro General: patient oriented x3, gait normal, no meningeal signs, no focal motor deficits and CN's II-XI intact bilaterally Psych Other: Cooperative Course Reevaluation(s) Reevaluation #1: improved Medications Administered Discontinued Medications Generic Name Dose Route Start Last Admin Trade Name Freq PRN Reason Stop Dose Admin Dexamethasone Sodium Phosphate 10 mg 03/12/25 02:34 03/12/25 02:48 Dexamethasone Sod Phosphate 10 Mg/Ml Vial IVPUSH 03/12/25 02:35 10 mg ONCE ONE Administration Diphenhydramine HCl 25 mg 03/12/25 02:34 03/12/25 02:47 Diphenhydramine Hcl 50 Mg/Ml Vial IVPUSH 03/12/25 02:35 25 mg ONCE ONE Administration Sodium Chloride 500 mls @ 500 mls/hr 03/12/25 02:34 03/12/25 03:51 Ns IV 03/12/25 03:33 Infused .Q1H ONE Infusion Ketorolac Tromethamine 15 mg 03/12/25 02:34 03/12/25 02:48 Ketorolac Tromethamine 15 Mg/Ml Vial IVPUSH 03/12/25 02:35 15 mg ONCE ONE Administration Prochlorperazine Edisylate 10 mg 03/12/25 02:34 03/12/25 02:47 Prochlorperazine Edisylate 10 Mg/2 Ml Vial IVPUSH 03/12/25 02:35 10 mg ONCE ONE Administration Medical Decision Making Medical Decision Making [facility] Narrative: 29-year-old female with a history of daily migraine, presents with refractory migraine headache. Patient states she recently started Depo-Provera, since she is having more frequent headaches. Patient typically uses Excedrin with a good relief from her symptoms. Associated preceding aura. Patient has a left-sided retro-orbital headache. Associated photophobia, phonophobia, dizziness, nausea vomiting. Denies neck pain, recent illness, fever. Problem: Migraine History: Per patient I have considered the following differential diagnoses: Migraine, intracranial hemorrhage, meningitis, VAD Plan: Patient has a history of migraines, her symptoms are consistent with her migraine, her new form of contraception is the likely trigger for her refractory symptoms. We will be giving a migraine cocktail. Thought about intracranial hemorrhage, however the patient has migraines, there was no head trauma, she is not altered she has no neuro deficits, CT scan not warranted. Thought about meningitis, however no meningeal signs on exam she has no complaint of neck pain. Thought about VAD, however there was no preceding heavy lifting injury, and again the patient has had symptoms for weeks, she is also neurologically intact. No indication for labs. Differential Diagnosis Differential Diagnoses: The differential diagnosis associated with the presentation includes See medical decision-making Admission/Observation Consideration of admission/observation: Escalation of care including admission/observation considered Not applicable Discharge Plan Discharge Clinical Impression: Migraine Patient Disposition: Home, Self-Care Instructions: Migraine Headache (ED) Additional Instructions: You were treated for a migraine type headache. See home care instructions. Your new control method is the likely cause of your refractory migraines. You may want to have discussion with your software development coordinator about changing your method. Prescriptions: No Action clindamycin HCl 300 mg capsule 300 mg PO QID Qty: 40 0RF amoxicillin-pot clavulanate 875-125 mg tablet 1 tab PO BID 7 Days Qty: 14 0RF metoclopramide HCl [Reglan] 10 mg tablet 10 mg PO Q6H PRN (Reason: nausea and vomiting) Qty: 14 0RF ondansetron 4 mg tablet,disintegrating 4 mg PO Q8H PRN (Reason: nausea and vomiting) Qty: 10 0RF hsoazenaht-deotekwogsycr-xenw 50-325-40 mg tablet 1 tab PO Q6H PRN (Reason: pain) Qty: 10 0RF Stand Alone Forms: Work/School Release Print Language: Vietnamese
--- NOTE | 2025-03-12 02:54 | PC.NURSE ---
Iv placed, medicated per mar.
--- OUTSIDE RECORDS SUMMARY | 2025-03-12 05:05 | XMS_ITS | Encounter Summary ---
Author Organization [facility] Address [address] [place] [address] Care Team Providers Care Gis Database Administrator Name Role Phone Pcp, No Primary Care Provider Unavailabl e Reason for Visit * Reason Onset Date Comments Abdominal Pain 12/15/2018 Encounter Details Date Type Department Care Team (Late st Contact Info) Description 12/15/2018 Telephone [facility] [address] [place] [phone] Hayley Anders MD [address] [place] [address] [phone] Abdominal Pain Social History Tobacco Use Types Packs/Day Years Used Date Smoking Tobacco: Every Day Cigarettes Smokeless Tobacco: Never Alcohol Use Standard Drinks/Week Comments Not Currently 0 (1 standard drink = 0.6 oz pur e alcohol) Comments No Sex and Gender Information Value Date Recorded Sex Assigned at Not on file Legal Sex Female 1:02 PM EDT Gender Identity Not on file Sexual Orientation Not on file documented as of this encounter Miscellaneous Notes * Telephone Encounter - Elliot Ndiaye - 12/15/2018 9:58 AM EDT CS ON 12/10/18 Patient is in a lot of pain after her ,calling to schedule ppv in 2 wks forwound check no appt aviable,pt asking to talk to nurse/need pain medication documented in this encounter Plan of Treatment Not on file documented as of this encounter Visit Diagnoses Not on filedocumented in this encounter Care Teams Gis Database Administrator Relationship Specialty Start Date End Date Pcp, No PCP - General General Medicine 12/15/18 documented as of this encounter
--- OUTSIDE RECORDS SUMMARY | 2025-03-12 05:05 | XMS_ITS | Clinical Summary ---
Author Organization [facility] Address [address] [place] [address] Care Team Providers Care Ripening Room Operator Name Role Phone Unavailable Primary Care Provider Unavailabl e Allergies Active Allergy Reactions Criticality Noted Date Comments Morphine And Codeine 06/03/2014 Medications Medication Sig Dispensed Refills Start Date End Date Status benzonatate (TESSALON) 200 MG capsule Take 1 capsule (200 mg total) by mouth 3 (three) times a day as needed for cough. 20 capsule 0 06/03/2014 Active naproxen (NAPROSYN) 500 MG tablet Take 1 tablet (500 mg total) by mouth 2 (two) times a day with meals. 20 tablet 0 06/03/2014 Active Social History Tobacco Use Types Packs/Day Years Used Date Smoking Tobacco: Every Day Tobacco Cessation:Ready to Q uit: No Alcohol Use Standard Drinks/Week Comments No 0 (1 standard drink = 0.6 oz pur e alcohol) Sex and Gender Information Value Date Recorded Sex Assigned at Not on file Gender Identity Not on file Sexual Orientation Not on file Last Filed Vital Signs Vital Sign Reading Time Taken Comments Blood Pressure 111/70 06/03/2014 4:54 PM EST Pulse 90 06/03/2014 4:54 PM EST Temperature 36.4 C (97.6 F) 06/03/2014 4:54 PM EST Respiratory Rate 18 06/03/2014 4:54 PM EST Oxygen Saturation 99% 06/03/2014 4:54 PM EST Inhaled Oxygen Concentration - - Weight 53.1 kg (117 lb) 06/03/2014 4:54 PM EST Height 149.9 cm (4' 11 ) 06/03/2014 4:54 PM EST Body Mass Index 23.63 06/03/2014 4:54 PM EST Plan of Treatment Not on file
--- OUTSIDE RECORDS SUMMARY | 2025-03-12 05:05 | XMS_ITS | Clinical Summary ---
Author Organization [facility] Address [address] [place] [address] Care Team Providers Care Nitriles Lab Technician Name Role Phone Pcp, No Primary Care Provider Unavailabl e Allergies Active Allergy Reactions Criticality Noted Date Comments Morphine Unknown/Patient and Family Unable to Define Medium 12/10/2018 Medications oxyCODONE (ROXICODONE) 5 MG immediate release tabletIndications :Postoperative pain Take 1 tablet (5 mg total) by mouth 4 times daily (every 6 hours) as needed for severe pain. Max Daily Amount: 20 mg 8 tablet 9 Active norethindrone (MICRONOR) 0.35 MG tabletIndications :Encounter for initial prescription of contraceptive pills Take 1 tablet (0.35 mg total) by mouth daily. 28 tablet 3 9 Active gabapentin (NEURONTIN) 300 MG capsuleIndication s:Postoperative pain Take 1 capsule (300 mg total) by mouth nightly. 30 capsule 1 9 Active Elastic Bandages & Supports (ABDOMINAL BINDER/ELASTIC LARGE) MiscIndications:P ostoperative pain Wear abdominal binder as needed for incisional pain, especially at night 1 Device 9 Active norethindrone-eth inylestradiol-iro n () 1.5-30 MG-MCG tabIndications:En counter for female control Take 1 tablet by mouth daily. 28 tablet 11 9 Active Resolved Problems Problem Noted Date Diagnosed Date Resolved Date care and examination 12/30/2018 02/16/2019 Assessment & Plan (12/30/2018 4:59 PM EDT): Incision pain: -incision healing well, no evidence of infection, hematoma, serosa. Pain appropriate for 3 weeks post op. Reports gabapentin worked well for her so rx given for gabapentin 300 mg TID, continue alternating tylenol and motrin -Rx for abdominal binder provided : -Rx for POPs provided today -Discussed risk of depression. EDS 01/04 today, consistent with adjustment from delivery and being from babies due to NICU stay. Discussed starting zoloft today because she is self treating her anxiety with marijuana and is involved with DCF as a result. Patient does nnot want to yet but is going to think about it and call if she wants to start. Would recommend starting zoloft 50 mg. -follow up in 3 weeks for comprehensive 6wk visit. -Reviewed depression precautions and reiterated that she can call if she has any warning signs or concerns. Patient expressed understanding Postoperative pain 12/15/2018 9 Assessment & Plan (12/15/2018 6:24 PM EDT): Patient to continue taking ibuprofen 600 mg PO q6h. I also encouraged her to take 3 regular strength or 2 double strength Tylenol every 6 hours. Sent prescription for gabapentin 300 mg nightly, as well as 8 tabs of oxycodone 5 mg PO. every 6 hours as needed. Looked patient up on [facility] prescription monitoring services website. No prior prescriptions for controlled substances listed. premature rupture of membranes 12/10/2018 02/16/2019 Family History Medical History Relation Name Comments No Known Problems Brother No Known Problems Father No Known Problems Mother No Known Problems Sister Relation Name Status Comments Brother Alive Father Alive Mother Alive Sister Alive Social History Tobacco Use Types Packs/Day Years Used Date Smoking Tobacco: Every Day Cigarettes Smokeless Tobacco: Never Tobacco Cessation:Ready to Q uit: No; Counseling Given: No Alcohol Use Standard Drinks/Week Comments Not Currently 0 (1 standard drink = 0.6 oz pur e alcohol) Comments No Sex and Gender Information Value Date Recorded Sex Assigned at Not on file Legal Sex Female 1:02 PM EDT Gender Identity Not on file Sexual Orientation Not on file Last Filed Vital Signs Vital Sign Reading Time Taken Comments Blood Pressure 128/59 02/16/2019 11:00 AM EDT Pulse 80 02/16/2019 11:00 AM EDT Temperature 36.7 C (98.1 F) 12/12/2018 7:10 AM EDT Respiratory Rate 16 12/12/2018 7:10 AM EDT Oxygen Saturation 98% 12/12/2018 7:10 AM EDT Inhaled Oxygen Concentration - - Weight 54.8 kg (120 lb 14.4 oz) 019 11:00 AM EDT Height 149.9 cm (4' 11 ) 02/16/2019 11: 00 AM EDT Body Mass Index 24.42 02/16/2019 11:00 AM EDT Plan of Treatment Health Maintenance Due Date Last Done Comments Hepatitis C Virus Screening 1993 DTaP/Tdap/Td Vaccines (1 - Tdap) 2012 Hepatitis B Vaccines (1 of 3 - 19+ 3-dose series) 2012 Pneumococcal Vaccine: Pediat william (0-5 Years) and At-Risk Patients (6 to 49 Years) (1 of 2 - PCV) 2012 Pap Smear (Ages 21-65) 2014 Influenza Vaccine 01/06/2025 COVID-19 Vaccine (1 - 2023- season) 2025 HIV Screening Completed 07/22/2022, 12/10/2018 HPV Vaccines (No Doses Required) Completed Procedures Procedure Name Priority Date/Time Associated Diagnosis Comments HIV 1/2 AG/AB CMIA REFLEX TO CONFIRMATION Routine 12/10/2018 2:43 PM EDT from Last 3 Months or Most Recently Relevant to Health Maintenance Results * HIV 1/2 Ag/Ab CMIA Reflex to Confirmation (12/10/2018 2:43 PM EDT) Pathologist [facility] [place] HIV 1/2 Ag/Ab CMIA Nonreactive Nonreactive HOSPITAL LAB Comment: Results show no evidence of infection by HIV 1/2. If clinically indicated, repeat CMIA or test by nucleic acid amplification. Performed at [facility], [place], [place] License [id number] CLIA [id number] Blood specimen (specimen) Blood specimen / Unknown 12/10/2018 2:43 PM EDT 12/10/2018 3:30 PM EDT us Michelle Timmons MD LAB BLOOD ORDERABLES Final Re sult HOSPITAL LAB from Last 3 Months or Most Recently Relevant to Health Maintenance Insurance [place] [facility]ives * Full Code (Latest Code Status on File) Date Activated Date Inactivated Comments 12/10/2018 3:08 PM * Full Code Date Activated Date Inactivated Comments 12/10/2018 1:26 PM 12/10/2018 3:08 PM Care Teams Nitriles Lab Technician Relationship Specialty Start Date End Date Pcp, No PCP - General General Medicine 12/15/18
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
--- NOTE | 2025-03-12 05:44 | PC.NURSE ---
Iv removed, reviewed discharge instructions with pt. pt verbalized understanding, no sign of distress.
[2025-03-12 05:45] VITALS: BP 107/61; PULSE 69; RESP 16; TEMP 36.7; O2SAT 98
== END 2025-03-12 06:14 | disposition home or self-care (01) ==
PROVIDERS: Emergency Provider Emergency Medicine
DX: G43.909 Migraine, unspecified, not intractable, without status migrainosus (principal); R11.2 Nausea with vomiting, unspecified; H53.143 Visual discomfort, bilateral
CPT/HCPCS: 96361; 96374; 96375; 99284; J0737; J1100; J1200; J1885

== ENCOUNTER 2025-04-12 22:46 | Emergency (ER) | payer OTHER, SELFPAY ==
[2025-04-12 22:54] VITALS: BP 159/91; PULSE 110; RESP 20; TEMP 36.8; O2SAT 98; BMI 27.3
[2025-04-12 23:25] LABS: MANUAL DIFF FLAG NO
[2025-04-12 23:27] LABS: Hematocrit 44.5 % (37.0-47.0); Hemoglobin 15.0 g/dl (12.0-16.0); Imm Gran Abs Auto 0.06 X10*3/uL (0.00-0.03); Imm Gran Pct Auto 0.4 % (0.0-0.4); Lymphocytes Absolute Auto 4.8 X10*3/uL (1.2-4.9); Mean Corpuscular HGB Conc 33.7 g/dl (31.0-35.0); Mean Corpuscular Hemoglobin 29.0 pg (27.0-33.0); Mean Corpuscular Volume 85.9 fL (80.0-98.0); NRBC Abs Auto 0.000 X10*3/uL (0.0-0.012); NRBC Pct Auto 0.0 /100WBC (0.0-0.2); Platelet Count 280 X10*3/uL (160-400); Red Blood Count 5.18 X10*6/uL (4.20-5.50); White Blood Count 16.9 X10*3/uL (4.8-10.8)
[2025-04-12 23:40] LABS: Alanine Aminotransferase 21 U/L (0-31); Albumin Level 4.4 g/dL (3.5-5.0); Alkaline Phosphatase 87 U/L (39-117); Anion Gap 13 (12-20); Aspartate Amino Transferase 25 U/L (5-31); Blood Urea Nitrogen 10 mg/dL (9-16); Calcium 9.3 mg/dL (8.4-10.2); Carbon Dioxide 21 mmol/L (22-29); Chloride 111 mmol/L (96-108); Creatinine Clr Calc Pharmacy 104.6; Estimated Glomerular Filt Rate > 60; Potassium 3.1 mmol/L (3.3-5.1); Sodium 142 mmol/L (135-145); Total Protein 7.7 g/dL (6.5-8.0)
--- NOTE | 2025-04-13 02:51 | ED.HA ---
HPI - Headache General Chief Complaint: Headache Stated Complaint: high blood pressure, migraine, dizzy, N & V Time Seen by Provider: 04/13/25 02:48 Source: patient Mode of arrival: ambulatory Limitations: no limitations History of Present Illness ED Provider: Turner GRAJEDA HPI Narrative: The patient is a 29-year-old female with a history of migraine headaches presenting to the ED reporting she developed a migraine today, which did not improve with Excedrin as it normally does. The patient reports associated photophobia and nausea with 2 episodes of nonbloody emesis. The patient reports presentation is similar to her previous headaches. The patient denies associated fever/chills, diarrhea, abdominal pain, chest pain, shortness of breath, focal neurological deficit, recent trauma, or recent sick contacts. Patient reports she last required ED intervention for her migraines about 1 month ago, reports she received a migraine cocktail at that time with good effect. Related Data Previous Rx's ?Medication ?Instructions ?Recorded clindamycin HCl 300 mg capsule 300 mg PO QID #40 caps 09/25/20 amoxicillin 875 mg-potassium 1 tab PO BID 7 days #14 tabs 07/17/22 clavulanate 125 mg tablet metoclopramide HCl 10 mg tablet 10 mg PO Q6H PRN nausea and 02/22/23 (Reglan) vomiting #14 tabs otrfdczvly-qprrcumpfwvvi-oyfajkln 1 tab PO Q6H PRN pain #10 tabs 03/16/24 50 mg-325 mg-40 mg tablet ondansetron 4 mg disintegrating 4 mg PO Q8H PRN nausea and 03/16/24 tablet vomiting #10 tabs Allergies Allergy/AdvReac Type Severity Reaction Status Date / Time morphine (MORPHINE) AdvReac Unknown SHAKING,TAC Verified 04/12/25 22:56 HYCARDIA Review of Systems Review of Systems: Yes all other systems are reviewed and are negative PMFSH Past Medical History Medical History delivery delivered Social History Social History Alcohol intake: never Smoked in Last 30 Days: Yes Use of substances other than those prescribed or required for medical reasons: Yes Substance Use Type: Marijuana Substance Use Frequency: Daily Any prior treatment program specific to substance use: No Advance Directives: No Advance Directives Information Provided: Yes Physical Exam Vital Signs: Vital Signs: Last Vital Signs Temp 98.2 F 04/13/25 02:56 Pulse 90 04/13/25 02:56 Resp 20 04/13/25 02:56 BP 148/88 H 04/13/25 02:56 Pulse Ox 98 04/13/25 02:56 O2 Del Method Room Air 04/13/25 02:56 BMI result Body Mass Index 27.3 CONSTITUTIONAL: The patient appears uncomfortable but otherwise non-toxic, well nourished and in no acute distress. Vital signs as documented. HEAD: Atraumatic, normocephalic. EYES: EOMs grossly intact, pupils equal, conjunctiva clear, no exudate. ENT: Nares patent, no discharge. Airway patent, no audible stridor, visible mucosa is pink and moist without noted lesions. NECK: Trachea is midline, no obvious masses or gross abnormalities. Full range of motion, able to touch chin to chest without discomfort. No meningismus. CHEST: Symmetric movement, normal appearance. LUNGS: LS present and CTAB, no w/r/r. Non-labored work of breathing. CARDIAC: Regular Rhythm, S1/S2 appreciated, no murmurs, rubs or gallops. ABDOMEN: Abdomen soft and non-tender x4 quadrants, no palpable masses or organomegaly. : Deferred. EXTREMITIES: Normal tone, moves all extremities spontaneously without reported pain. No obvious acute injury or deformity noted. NEURO: Alert and oriented x3, CN II-XII appear grossly intact. Cerebellar Functioning grossly intact. No obvious sensory or motor deficits. Speech clear and appropriate. PSYCH: normal affect, appropriate eye contact, fluid speech, with appropriate response to questioning. No reported suicidality or homicidality. SKIN: Warm, dry, color appropriate, normal turgor. No rashes noted. Medications Administered Discontinued Medications Generic Name Dose Route Start Last Admin Trade Name Freq PRN Reason Stop Dose Admin Diphenhydramine HCl 50 mg 04/13/25 03:16 04/13/25 03:34 Diphenhydramine Hcl 50 Mg/Ml Vial IVPUSH 04/13/25 03:17 50 mg ONCE ONE Administration Sodium Chloride 1,000 mls @ 999 mls/hr 04/13/25 03:30 04/13/25 03:35 Ns IV 04/13/25 04:30 999 mls/hr .Q1H1M AUNG Administration Ketorolac Tromethamine 15 mg 04/13/25 03:16 04/13/25 03:34 Ketorolac Tromethamine 15 Mg/Ml Vial IVPUSH 04/13/25 03:17 15 mg ONCE ONE Administration Metoclopramide HCl 10 mg 04/13/25 03:16 04/13/25 03:34 Metoclopramide Hcl 10 Mg/2 Ml Vial IVPUSH 04/13/25 03:17 10 mg ONCE ONE Administration Medical Decision Making Medical Decision Making MDM Narrative: 3:17 AM 04/13/2025 (Hari GRAJEDA): The patient is a 29-year-old female with a history of migraine headaches presenting to the ED reporting she developed a migraine today, which did not improve with Excedrin as it normally does. The patient reports associated photophobia and nausea with 2 episodes of nonbloody emesis. The patient reports presentation is similar to her previous headaches. The patient denies associated fever/chills, diarrhea, abdominal pain, chest pain, shortness of breath, focal neurological deficit, recent trauma, or recent sick contacts. Patient reports she last required ED intervention for her migraines about 1 month ago, reports she received a migraine cocktail at that time with good effect. On exam patient has no focal neurological deficit, appears uncomfortable. Patient will be treated with a migraine cocktail and reassessed. 5:22 AM 04/13/2025 (Hari GRAJEDA): The patient reports symptoms have dramatically improved following migraine cocktail, patient was sleeping comfortably when initiating reassessment. The patient's heart rate has continued to improve. The patient's laboratory evaluation demonstrates elevated WBC of 16.9, however chart review reveals patient has a persistently elevated WBC, and this is improved compared to baseline. There was no evidence of anemia or JEM. There is mild hypokalemia noted at 3.1, we will replete orally. Patient will be discharged to follow up with PCP for continued migraine and hypertensive management. Admission/Observation Consideration of admission/observation: Escalation of care including admission/observation considered Lab Data [facility] Lab Attestation statement: I reviewed the patient's lab results. 04/12/25 23:22 04/12/25 23:22 Labs: Lab Results 04/12/25 Range/Units 23:22 WBC 16.9 H (4.8-10.8) X10*3/uL RBC 5.18 (4.20-5.50) X10*6/uL Hgb 15.0 (12.0-16.0) g/dl Hct 44.5 (37.0-47.0) % MCV 85.9 (80.0-98.0) fL MCH 29.0 (27.0-33.0) pg MCHC 33.7 (31.0-35.0) g/dl RDW 13.4 (11.0-16.0) % Plt Count 280 (160-400) X10*3/uL MPV 9.4 (9.4-12.3) fL Immature Gran % (Auto) 0.4 (0.0-0.4) % Neut % (Auto) 62.6 (45-73) % Lymph % (Auto) 28.5 (20-40) % [place] % (Auto) 4.5 (2-11) % Eos % (Auto) 3.6 (0-4) % Baso % (Auto) 0.4 (0-2) % Lymph # (Auto) 4.8 (1.2-4.9) X10*3/uL [place] # (Auto) 0.8 (0.1-1.2) X10*3/uL Eos # (Auto) 0.6 H (0.0-0.4) X10*3/uL Baso # (Auto) 0.1 (0.0-0.2) X10*3/uL Abs Immat Gran (auto) 0.06 H (0.00-0.03) X10*3/uL Absolute Neuts (auto) 10.6 H (2.0-8.3) x10*3/uL Absolute Nucleated RBC 0.000 (0.0-0.012) X10*3/uL Nucleated RBC % (auto) 0.0 (0.0-0.2) /100WBC Sodium 142 (135-145) mmol/L Potassium 3.1 L (3.3-5.1) mmol/L Chloride 111 H (96-108) mmol/L Carbon Dioxide 21 L (22-29) mmol/L Anion Gap 13 (12-20) BUN 10 (9-16) mg/dL Creatinine 0.62 (0.5-1.4) mg/dL Estim Creat Clear Calc 104.6 Estimated GFR > 60 Random Glucose 98 (60-115) mg/dL Calcium 9.3 (8.4-10.2) mg/dL Total Bilirubin 0.4 (0.0-1.0) mg/dL AST 25 (5-31) U/L ALT 21 (0-31) U/L Alkaline Phosphatase 87 (39-117) U/L Total Protein 7.7 (6.5-8.0) g/dL Albumin 4.4 (3.5-5.0) g/dL Discharge Plan Discharge Clinical Impression: Migraine Patient Disposition: Home, Self-Care Instructions: Migraine Headache (ED) Additional Instructions: Thank you for choosing [facility]'s Emergency Department for your care today. Thankfully your headache today was consistent with the previous headaches, and your symptoms have improved following administration of a migraine cocktail in the emergency department. At this time there is no indication for admission to the hospital or continued ED observation, and it is safe to discharge you home. Please take Excedrin migraine as directed by your primary care provider for any additional migraine headache symptoms. Please stay well hydrated and get plenty of rest. Please follow up with your primary care physician for re-evaluation, additional management of your symptoms, consideration of alternative blood pressure medication to increase compliance, and continued preventative care. If you do not have a primary care physician, please call the [facility] at [phone] to establish a new primary care physician. While waiting to establish your new primary care physician, you can call our Walk-in [facility] at [phone] for non-emergency needs. Please return to the emergency department if you develop a severe or sudden change in your symptoms, a fever over 100.4 that does not improve with Tylenol or Ibuprofen, recurrent vomiting, or any other new or worsening symptoms or concerns. Prescriptions: No Action clindamycin HCl 300 mg capsule 300 mg PO QID Qty: 40 0RF amoxicillin-pot clavulanate 875-125 mg tablet 1 tab PO BID 7 Days Qty: 14 0RF metoclopramide HCl [Reglan] 10 mg tablet 10 mg PO Q6H PRN (Reason: nausea and vomiting) Qty: 14 0RF ondansetron 4 mg tablet,disintegrating 4 mg PO Q8H PRN (Reason: nausea and vomiting) Qty: 10 0RF dvaqkzdyoy-assdyylmlmvim-aqww 50-325-40 mg tablet 1 tab PO Q6H PRN (Reason: pain) Qty: 10 0RF [facility] Clinical Impression: Migraine Print Language: [place]ese
[2025-04-13 02:56] VITALS: BP 148/88; PULSE 90; RESP 20; TEMP 36.8; O2SAT 98
--- NOTE | 2025-04-13 03:02 | PC.NURSE ---
PT from triage coming from home AOx4 chief complaint of a migraine onset 1 day ago. PT reports a 10/10 migraine headache w/ secondary symptoms of N/V, blurry vision, and numbness tingling down R upper extremity. PT reports her migraines are recurrent.
--- OUTSIDE RECORDS SUMMARY | 2025-04-13 03:22 | XMS_ITS | Clinical Summary ---
Author Organization Formerly [facility] Address [address] [place] [address] Care Team Providers Care Surgical Sales Representative Name Role Phone Pcp, No Primary Care [...] hours as needed. Looked patient up on [facility] prescription monitoring services website. No prior [...] to Confirmation (12/10/2018 2:43 PM EDT) Pathologist [facility] HIV 1/2 Ag/Ab CMIA Nonreactive Nonreactive HOSPITAL LAB Comment: Results show no evidence of infection by HIV 1/2. If clinically indicated, repeat CMIA or test by nucleic acid amplification. Performed at [facility], [place], [place] License [id number] CLIA [id number] Blood specimen (specimen) Blood specimen / Unknown 12/10/2018 2:43 PM EDT 12/10/2018 3:30 PM EDT us Michelle Timmons MD LAB BLOOD ORDERABLES Final Re sult HOSPITAL LAB from Last 3 Months or Most Recently Relevant to Health Maintenance Insurance [place] OUT [place] [facility] * Full Code (Latest Code Status on File) Date Activated Date Inactivated Comments 12/10/2018 3:08 PM * Full Code Date Activated Date Inactivated Comments 12/10/2018 1:26 PM 12/10/2018 3:08 PM Care Teams Surgical Sales Representative Relationship Specialty Start Date End Date Pcp, No PCP - General General Medicine 12/15/18
--- OUTSIDE RECORDS SUMMARY | 2025-04-13 03:22 | XMS_ITS ---
Author Name [facility] Organization Unknown Care Team Organization Name Specialty Phone Email Start Date End Da te [facility] AVEL COLE Primary Care [email or web address] 10/13/2022 01/25/2024 [facility] Katharina Corona Primary Care 04/15/2022
--- OUTSIDE RECORDS SUMMARY | 2025-04-13 03:22 | XMS_ITS | Clinical Summary ---
Author Organization [facility] [address] [place] [address] Building Address [address] [place] [phone] Phone Care Team Providers Care Manager Database Administration Name Role Phone Dov Blanco MD Primary Care Provider [phone] Allergies Active Allergy Reactions Criticality Noted Date [...] through breast milk with minimal known about rodent exterminator affects. She understood. UDS today. Encounters Date Type Department Care Team Description 03/27/2025 Telephone Adult Medicine [address] [phone] Dov Blanco MD from Last 3 Months Immunizations Immunization Administration [...] testing if concordant (<10% discordance) Deliver 38-38 6 weeks Should have physician visit to discuss [...] Multiple Livin g Live Births 1 1 1 2 Date Outcome GA Total [...] Care Team (Late st Contact Info) Description 05/15/2025 10:45 AM EST Consult General Surgery - [address] [place] [phone] Nathaniel Turner MD [address] [place] [phone] Health Maintenance Due Date Last Done Comments [...] Procedure Name Priority Date/Time Associated Diagnosis Comments HEPATITIS C ANTIBODY Routine 10/19/2024 10:05 AM EDT Annual physical exam LIPID PANEL WITH REFLEX TO DIRECT LDL Routine 10/19/2024 10:05 AM EDT Annual physical exam from Last 3 Months or Most Recently Relevant to Health Maintenance Results * Hepatitis C antibody (10/19/2024 10:05 AM EDT) Hepatitis C Antibody Negative Negative LAB CHEMISTRY METHOD 10/19/2024 2:37 PM EDT [facility] Blood Venous blood specimen / Unknown Venipuncture / Unknown 10/19/2024 10:05 AM EDT 10/19/2024 10:05 AM EDT Dov Blanco MD LAB BLOOD ORDERABLES Final Result [facility] [address] [place] [address], [place] [phone] * (ABNORMAL) Lipid panel with reflex to direct LDL (10/19/2024 10:05 AM EDT) Cholesterol 194 0 - 200 mg/dL LAB CHEMISTRY METHOD 10/19/2024 1:02 PM EDT [facility] Triglycerides 131 0 - 150 mg/dL LAB CHE[facility]STRY [facility] HDL 38(L) >=40 mg/dL LAB CHEMISTRY [facility] LDL Calculated 130(H) 0 - 100 mg/dL LAB CHEMISTRY METHOD 10/19/2024 1:02 PM EDT [facility] VLDL Cholesterol Brad 26.2 mg/dL LAB CHEMISTRY METHOD 10/19/2024 1:02 PM EDT [facility] Non HDL Chol. (LDL+VLDL) 156(H) <145 mg/dL LAB CHEMISTRY METHOD 10/19/2024 1:[address] [facility] Chol/HDL Ratio 5.1(H) 0.0 - 4.4 LAB CHEMISTRY METHOD 10/19/2024 1:02 PM T [facility] Blood Venous blood specimen / Unknown Venipuncture / Unknown 10/19/2024 10:05 AM EDT 10/19/2024 10:05 AM EDT Dov Blanco MD LAB BLOOD ORDERABLES Final Result Performing Organization Address City/[facility]/ZIP Co de Phone Number [facility] [address] [place] [address], [place] [phone] from Last 3 Months or Most Recently Relevant to Health Maintenance Insurance [facility] [address] Care Teams Manager Database Administration Relationship Specialty Start Date End Date Dov Blanco MD [address] [facility] [place] [address] PCP - General 07/17/22
--- OUTSIDE RECORDS SUMMARY | 2025-04-13 03:22 | XMS_ITS | Clinical Summary ---
Author Organization [facility] Address [address] [place] [address] Care Team Providers Care Resort Keeper Name Role Phone Unavailable Primary Care Provider [...]
[2025-04-13 06:06] VITALS: BP 123/75; PULSE 81; RESP 16; TEMP 37; O2SAT 98
== END 2025-04-13 06:07 | disposition home or self-care (01) ==
PROVIDERS: Emergency Provider Emergency Medicine
DX: G43.909 Migraine, unspecified, not intractable, without status migrainosus (principal); R11.2 Nausea with vomiting, unspecified
CPT/HCPCS: 36415; 80053; 85025; 96361; 96374; 96375; 99284; 99285; J1200; J1885; J2765